=== PATIENT | female | born 1995 | race Caucasian/White ===

== ENCOUNTER 2017-06-04 06:47 | Emergency (ER) | payer BC ==
--- NOTE | 2017-06-04 08:24 | EDM.PDOC ---
ED HPI GENERAL MEDICAL PROBLEM - General Chief Complaint: General Stated Complaint: VOMITING, BODY ACHES, COUGH Time Seen by Provider: 06/04/17 08:16 - History of Present Illness INITIAL COMMENTS - FREE TEXT/NARRATIVE: HISTORY AND PHYSICAL: History of present illness: Patient's 21-year-old female presents with cervical cough congestion sore throat over 1 week denies shortness of breath chest pain or other concern Review of systems: As per history of present illness and below otherwise all systems reviewed and negative. Past medical history: As per history of present illness and as reviewed below otherwise noncontributory. Surgical history: As per history of present illness and as reviewed below otherwise noncontributory. Social history: No reported history of drug or alcohol abuse. Family history: As per history of present illness and as reviewed below otherwise noncontributory. Physical exam: HEENT: Atraumatic, normocephalic, pupils reactive, negative for conjunctival pallor or scleral icterus, mucous membranes moist, throat clear, neck supple, nontender, trachea midline. Lungs: Clear to auscultation, breath sounds equal bilaterally, chest nontender. Heart: S1S2, regular, negative for clicks, rubs, or JVD. Abdomen: Soft, nondistended, nontender. Negative for masses or hepatosplenomegaly. Negative for costovertebral tenderness. Pelvis: Stable nontender. Genitourinary: Deferred. Rectal: Deferred. Extremities: Atraumatic, negative for cords or calf pain. Neurovascular unremarkable. Neuro: Awake, alert, oriented. Cranial nerves II through XII unremarkable. Cerebellum unremarkable. Motor and sensory unremarkable throughout. Exam nonfocal. Diagnostics: With the screen rapid strep Therapeutics: None Impression: #1 viral syndrome Definitive disposition and diagnosis as appropriate pending reevaluation and review of above. Generalized Pain Score (Numeric/FACES): 7 - Related Data Allergies Allergy/AdvReac Type Severity Reaction Status Date / Time amoxicillin Allergy Hives Verified 06/04/17 07:01 Home Meds: Home Meds Ethinyl Estradiol/Drospirenone [Ocella 3 MG-0.03 MG] 1 each PO DAILY 06/04/17 [ History] Past Medical History - Past Health History Medical/Surgical History: Denies Medical/Surgical History Social & Family History - Tobacco Use Smoking Status *Q: Never Smoker - Caffeine Use Caffeine Use: Reports: Coffee, Energy Drinks, Soda, Tea - Recreational Drug Use Recreational Drug Use: No ED ROS GENERAL - Review of Systems Review Of Systems: ROS reveals no pertinent complaints other than HPI. ED EXAM, GENERAL - Physical Exam Exam: See Below (See dictation) Course - Vital Signs Last Recorded V/S: Last Vital Signs Temp 36.9 C 06/04/17 06:58 Pulse 137 H 06/04/17 06:58 Resp 16 06/04/17 06:58 BP 139/86 06/04/17 06:58 Pulse Ox 98 06/04/17 06:58 - Orders/Labs/Meds Orders: Active Orders 24 hr Category Date Time Status CULTURE STREP A CONFIRMATION [] Stat Lab 06/04/17 07:07 Results STREP SCRN A RAPID W CULT CONF [] Stat Lab 06/04/17 07:07 Results Labs: Laboratory Tests 06/04/17 Range/Units 07:55 Urine HCG, Qual NEGATIVE (NEGATIVE) Departure - Departure Time of Disposition: 08:23 Disposition: Home, Self-Care 01 Condition: Good Clinical Impression: Viral syndrome - Discharge Information Referrals: Ender Young MD [Primary Care Provider] - Additional Instructions: The following information is given to patients seen in the emergency department who are being discharged to home. This information is to outline your options for follow-up care. We provide all patients seen in our emergency department with a follow-up referral. The need for follow-up, as well as the timing and circumstances, are variable depending upon the specifics of your emergency department visit. If you don't have a primary care physician on staff, we will provide you with a referral. We always advise you to contact your personal physician following an emergency department visit to inform them of the circumstance of the visit and for follow-up with them and/or the need for any referrals to a consulting specialist. The emergency department will also refer you to a specialist when appropriate. This referral assures that you have the opportunity for followup care with a specialist. All of these measure are taken in an effort to provide you with optimal care, which includes your followup. Under all circumstances we always encourage you to contact your private physician who remains a resource for coordinating your care. When calling for followup care, please make the office aware that this follow-up is from your recent emergency room visit. If for any reason you are refused follow-up, please contact the [facility] emergency department at and asked to speak to the emergency department charge nurse. Motrin/Tylenol as directed follow-up primary medical doctor 1-2 days return as needed as discussed - My Orders Last 24 Hours: My Active Orders 06/04/17 07:07 CULTURE STREP A CONFIRMATION [RM] Stat STREP SCRN A RAPID W CULT CONF [RM] Stat - Assessment/Plan Last 24 Hours: My Active Orders 06/04/17 07:07 CULTURE STREP A CONFIRMATION [RM] Stat STREP SCRN A RAPID W CULT CONF [] Stat
== END 2017-06-04 08:32 | disposition home or self-care (01) ==
LOC: MW.ED 06:47
DX: B34.9 Viral infection, unspecified (principal); Z88.1 Allergy status to other antibiotic agents; Z79.899 Other long term (current) drug therapy
CPT/HCPCS: 81025; 87081; 87804; 87880; 99283

== ENCOUNTER 2017-12-16 19:18 | Emergency (ER) | payer BC ==
--- NOTE | 2017-12-16 19:36 | EDM.PDOC ---
ED HPI GENERAL MEDICAL PROBLEM - General Chief Complaint: ENT Problem Stated Complaint: FOOD IN CHEST Time Seen by Provider: 12/16/17 19:29 Source of Information: Reports: Patient History Limitations: Reports: No Limitations - History of Present Illness INITIAL COMMENTS - FREE TEXT/NARRATIVE: HISTORY AND PHYSICAL: History of present illness: Patient is a 22-year-old female who presents to the emergency room with complaints of a sensation of foreign body in her esophagus. She states on Tuesday she was eating noodles and felt that a "noodle got stuck in my throat ". She was recently diagnosed with strep throat and currently is taking antibiotics for this. She reports "I think my strep throat is gone I just feel like I have something till in there". She states that the throat is painful with swallowing and palpating. She is able to swallow her saliva and has been eating appropriately since the said incident. She denies any fever, chills, chest pain, shortness of breath or cough. Denies any abdominal pain, nausea, vomiting, diarrhea or constipation. Review of systems: As per history of present illness and below otherwise all systems reviewed and negative. Past medical history: As per history of present illness and as reviewed below otherwise noncontributory. Surgical history: As per history of present illness and as reviewed below otherwise noncontributory. Social history: No reported history of drug or alcohol abuse. Family history: As per history of present illness and as reviewed below otherwise noncontributory. Physical exam: General: Well developed and well-nourished 22-year-old female. Alert and oriented. Nontoxic appearing and in no acute distress. HEENT: Atraumatic, normocephalic, pupils equal and reactive bilaterally, negative for conjunctival pallor or scleral icterus, mucous membranes moist, erythema to the posterior oropharynx with exudate and no pillar shifting, neck supple, nontender, trachea midline. No drooling or trismus noted. No meningeal signs Lungs: Clear to auscultation, breath sounds equal bilaterally, chest nontender. Heart: S1S2, regular rate and rhythm without overt murmur Abdomen: Soft, nondistended, nontender. Negative for masses or hepatosplenomegaly. Negative for costovertebral tenderness. Pelvis: Stable nontender. Genitourinary: Deferred. Rectal: Deferred. Skin: Intact, warm, dry. No lesions or rashes noted. Extremities: Atraumatic, negative for cords or calf pain. Neurovascular unremarkable. Neuro: Awake, alert, oriented. Cranial nerves II through XII unremarkable. Cerebellum unremarkable. Motor and sensory unremarkable throughout. Exam nonfocal. Notes: This time I am not concerned of a foreign body being in the esophagus. He does have exudate noted to the posterior oropharynx which I think is what she is having discomfort with. We'll give her something for pain. Chest x-ray being done. Denies any chance of . Chest x-ray is unremarkable. Poor to care measures were reviewed and discussed. She voices understanding. Denies any further questions or concerns at this time. Diagnostics: Chest x-ray Therapeutics: Tylenol with codeine Prescription: Tylenol with codeine Impression: History of strep throat Sensation of foreign body Plan: 1. Continue your antibiotics until completed 2. Take the Tylenol with Codeine for the discomfort. This medication may cause sedation (drowsiness) so do not take it will driving her needing to be functioning outside of the house. 3. Follow-up with your primary caregiver in the next 1-2 days. If you continue to have sensation of FB you should follow up with the general surgeon as you may require further evaluation (EGD). Return to the ED as needed and as discussed. Definitive disposition and diagnosis as appropriate pending reevaluation and review of above. Duration: Day(s): Location: Reports: Neck - Related Data Allergies Allergy/AdvReac Type Severity Reaction Status Date / Time amoxicillin Allergy Hives Verified 12/16/17 19:31 Home Meds: Home Meds Ethinyl Estradiol/Drospirenone [Ocella 3 MG-0.03 MG] 1 each PO DAILY 06/04/17 [ History] Azithromycin [Zithromax] 0 mg PO DAILY 12/16/17 [History] Past Medical History - Past Health History Medical/Surgical History: Denies Medical/Surgical History Social & Family History - Caffeine Use Caffeine Use: Reports: Coffee, Energy Drinks, Soda, Tea ED ROS ENT - Review of Systems Review Of Systems: ROS reveals no pertinent complaints other than HPI. ED EXAM, ENT - Physical Exam Exam: See Below (See dictation) Course - Vital Signs Last Recorded V/S: Last Vital Signs Temp 98 F 12/16/17 19:28 Pulse 95 12/16/17 19:28 Resp 18 12/16/17 19:28 BP 129/77 12/16/17 19:28 Pulse Ox 98 12/16/17 19:28 - Orders/Labs/Meds Orders: Active Orders 24 hr Category Date Time Status Chest 2V [CR] Stat Exams 12/16/17 19:41 Ordered Meds: Medications Discontinued Medications Generic Name Dose Route Start Last Admin Trade Name Freq PRN Reason Stop Dose Admin Acetaminophen/Codeine Phosphate 5 ml 12/16/17 19:41 12/16/17 20:11 Tylenol/Codeine 120-12 Mg/5 Ml PO 12/16/17 19:42 5 ml ONETIME ONE Administration Departure - Departure Time of Disposition: 20:13 Disposition: Home, Self-Care 01 Clinical Impression: History of strep pharyngitis, Sensation of foreign body in esophagus - Discharge Information Referrals: Ender Young MD [Primary Care Provider] - Forms: ED Department Discharge Additional Instructions: The following information is given to patients seen in the emergency department who are being discharged to home. This information is to outline your options for follow-up care. We provide all patients seen in our emergency department with a follow-up referral. The need for follow-up, as well as the timing and circumstances, are variable depending upon the specifics of your emergency department visit. If you don't have a primary care physician on staff, we will provide you with a referral. We always advise you to contact your personal physician following an emergency department visit to inform them of the circumstance of the visit and for follow-up with them and/or the need for any referrals to a consulting specialist. The emergency department will also refer you to a specialist when appropriate. This referral assures that you have the opportunity for follow-up care with a specialist. All of these measure are taken in an effort to provide you with optimal care, which includes your follow-up. Under all circumstances we always encourage you to contact your private physician who remains a resource for coordinating your care. When calling for follow-up care, please make the office aware that this follow-up is from your recent emergency room visit. If for any reason you are refused follow-up, please contact the [facility] Emergency Department at and asked to speak to the emergency department charge nurse. [facility] [address] [place] [id number] 1. Continue your antibiotics until completed 2. Take the Tylenol with Codeine for the discomfort. This medication may cause sedation (drowsiness) so do not take it will driving her needing to be functioning outside of the house. 3. Follow-up with your primary caregiver in the next 1-2 days. If you continue to have sensation of FB you should follow up with the general surgeon as you may require further evaluation (EGD). Return to the ED as needed and as discussed. - My Orders Last 24 Hours: My Active Orders 12/16/17 19:41 Chest 2V [CR] Stat - Assessment/Plan Last 24 Hours: My Active Orders 12/16/17 19:41 Chest 2V [CR] Stat
[2017-12-16] MEDS ORDERED: Acetaminophen/Codeine 120-12 MG/5 ML Soln 5 ML UD Cup PO ONE (19:41)
--- NOTE | 2017-12-19 15:20 | CR ---
EXAM DATE: 12/16/17 PATIENT'S AGE: 22 Patient: JANINE CHRISTY Facility: [place], [place] Site . Site : 1995 Study: XRay Chest [id number]/[id number] 9:11:38 PM Ordering Physician: Doctor August Final Report: HISTORY: Cough. TECHNIQUE: Two views of the chest. COMPARISON: No prior. FINDINGS: Cardiac size and pulmonary vasculature are within normal limits. There is no lung infiltrate or pulmonary edema. No pneumothorax or pleural effusion. No acute bony abnormality. IMPRESSION: No acute disease. Dictated by Khari Garcia MD @ 12/16/2017 9:15:02 PM Dictated by: Khari Garcia MD @ 12/16/2017 21:15:13 (Electronic Signature) Report Signed by Proxy. [facility]ITAL[facility]rak[facility]
== END 2017-12-16 21:55 | disposition home or self-care (01) ==
LOC: MW.ED 19:18
DX: R09.89 Other specified symptoms and signs involving the circulatory and respiratory systems (principal); Z88.1 Allergy status to other antibiotic agents; Z79.899 Other long term (current) drug therapy
CPT/HCPCS: 71046; 99283; A9270

== ENCOUNTER 2018-06-18 12:45 | Emergency (ER) | payer OTHER ==
[2018-06-18] MEDS ORDERED: Sodium Chloride 0.9% 1,000 ML IV ONE ×2 (13:29→14:57)
[2018-06-18] MEDS ORDERED: Sodium Chloride 0.9% 10 ML Syringe FLUSH PRN (13:29)
[2018-06-18] MEDS ORDERED: Sodium Chloride 0.9% 2.5 ML Syringe FLUSH PRN (13:29)
[2018-06-18] MEDS ORDERED: Ondansetron 4 MG/2 ML SDV IVPUSH ONE ×2 (13:53→16:12)
--- NOTE | 2018-06-18 14:03 | EDM.PDOC ---
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 She states she has had vomiting for the past 5 weeks, she was prescribed reglan 2 weeks ago by her OB, Dr. Dumont. She states this is no longer working and she hasn't taken it today because she can't keep anything down. She has had about 8 episodes of vomiting since 5am today. She denies fevers, chills, abdominal pain, diarrhea. She states she had a small amount of maria vaginal discharge this morning. Review of systems: As per history of present illness and below otherwise all systems reviewed and negative. Past medical history: As per history of present illness and as reviewed below otherwise noncontributory. Surgical history: As per history of present illness and as reviewed below otherwise noncontributory. Social history: No reported history of drug or alcohol abuse. Family history: As per history of present illness and as reviewed below otherwise noncontributory. Physical exam: General: Patient sitting comfortably in no acute distress and nontoxic appearing HEENT: Atraumatic, normocephalic, pupils reactive, negative for conjunctival pallor or scleral icterus, mucous membranes moist, throat clear, neck supple, nontender, trachea midline. No meningeal signs. Lungs: Clear to auscultation, breath sounds equal bilaterally, chest nontender. Heart: S1S2, regular, negative for clicks, rubs, or overt murmur. Abdomen: Soft, nondistended, nontender. Negative for masses or hepatosplenomegaly. Negative for costovertebral tenderness. Pelvis: Stable nontender. Genitourinary: Cervix is closed without any bloody discharge. Rectal: Deferred. Extremities: Atraumatic, negative for cords or calf pain. Neurovascular unremarkable. Neuro: Awake, alert, oriented. Cranial nerves II through XII unremarkable. Cerebellum unremarkable. Motor and sensory unremarkable throughout. Exam nonfocal. Notes: Diagnostics: CBC, CMP, hcg quant, ABO/Rh, UA Therapeutics: 2L Normal Saline IV 4mg Zofran IV Prescriptions: Zofran ODT Impression: Emesis in first trimester Plan: 1. Drink plenty of small sips of fluids and take zofran as needed for nausea/ vomiting 2. Follow up with OB, please call them tomorrow to schedule an appointment 3. Return to ED as needed as discussed Definitive disposition and diagnosis as appropriate pending reevaluation and review of above. - Related Data Allergies Allergy/AdvReac Type Severity Reaction Status Date / Time amoxicillin Allergy Hives Verified 06/18/18 13:29 Home Meds: Home Meds Ondansetron [Zofran ODT] 4 mg PO Q6H PRN #10 tab.dis 06/18/18 [Rx] Past Medical History - Past Health History Medical/Surgical History: Denies Medical/Surgical History HEENT History: Reports: None Psychiatric History: Reports: Anxiety, Depression - Past Surgical History HEENT Surgical History: Reports: Oral Surgery Social & Family History - Family History Family Medical History: Noncontributory - Tobacco Use Smoking Status *Q: Never Smoker - Caffeine Use Caffeine Use: Reports: Coffee, Energy Drinks, Soda, Tea - Recreational Drug Use Recreational Drug Use: No ED ROS GENERAL - Review of Systems Review Of Systems: ROS reveals no pertinent complaints other than HPI. ED EXAM - Physical Exam Exam: See Below (see dictation) Course - Vital Signs Last Recorded V/S: Last Vital Signs Temp 97.7 F 06/18/18 13:25 Pulse 86 06/18/18 15:12 Resp 18 06/18/18 15:12 BP 114/68 06/18/18 15:12 Pulse Ox 99 06/18/18 15:12 - Orders/Labs/Meds Orders: Active Orders 24 hr Category Date Time Status Sodium Chloride 0.9% [Normal Saline] 1,000 ml Med 06/18/18 14:57 Active IV STAT Sodium Chloride 0.9% [Saline Flush] Med 06/18/18 13:29 Active 10 ml FLUSH ASDIRECTED PRN Sodium Chloride 0.9% [Saline Flush] Med 06/18/18 13:29 Active 2.5 ml FLUSH ASDIRECTED PRN Saline Lock Insert [OM.PC] Stat Oth 06/18/18 13:29 Ordered Medication Orders Sodium Chloride (Normal Saline) 1,000 mls @ 999 mls/hr IV STAT ONE Stop: 06/18/18 15:57 Last Admin: 06/18/18 15:07 Dose: 999 mls/hr Sodium Chloride (Saline Flush) 10 ml FLUSH ASDIRECTED PRN PRN Reason: Keep Vein Open Last Admin: 06/18/18 13:54 Dose: 10 ml Sodium Chloride (Saline Flush) 2.5 ml FLUSH ASDIRECTED PRN PRN Reason: Keep Vein Open Last Admin: 06/18/18 13:54 Dose: 2.5 ml Labs: Laboratory Tests 06/18/18 06/18/18 06/18/18 Range/Units 14:00 14:00 14:00 WBC 6.61 (4.0-11.0) K/uL RBC 4.88 (4.30-5.90) M/uL Hgb 11.4 L (12.0-16.0) g/dL Hct 34.8 L (36.0-46.0) % MCV 71.3 L (80.0-98.0) fL MCH 23.4 L (27.0-32.0) pg MCHC 32.8 (31.0-37.0) g/dL RDW Std Deviation 41.6 (28.0-62.0) fl RDW Coeff of [place] 16 H (11.0-15.0) % Plt Count 211 (150-400) K/uL MPV 11.00 (7.40-12.00) fL Neut % (Auto) 69.4 (48.0-80.0) % Lymph % (Auto) 20.9 (16.0-40.0) % [place] % (Auto) 8.6 (0.0-15.0) % Eos % (Auto) 0.6 (0.0-7.0) % Baso % (Auto) 0.5 (0.0-1.5) % Neut # (Auto) 4.6 (1.4-5.7) K/uL Lymph # (Auto) 1.4 (0.6-2.4) K/uL [place] # (Auto) 0.6 (0.0-0.8) K/uL Eos # (Auto) 0.0 (0.0-0.7) K/uL Baso # (Auto) 0.0 (0.0-0.1) K/uL Nucleated RBC % 0.0 /100WBC Nucleated RBCs # 0 K/uL Sodium 139 (136-145) mmol/L Potassium 3.4 L (3.5-5.1) mmol/L Chloride 103 (98-107) mmol/L Carbon Dioxide 20.6 L (21.0-32.0) mmol/L BUN 15 (7.0-18.0) mg/dL Creatinine 0.6 (0.6-1.0) mg/dL Est Cr Clr Drug Dosing 117.31 mL/min Estimated GFR (MDRD) > 60.0 ml/min Glucose 75 (74-106) mg/dL Calcium 9.7 (8.5-10.1) mg/dL Total Bilirubin 0.5 (0.2-1.0) mg/dL AST 17 (15-37) IU/L ALT 15 (14-63) IU/L Alkaline Phosphatase 59 (46-116) U/L Total Protein 8.3 H (6.4-8.2) g/dL Albumin 4.3 (3.4-5.0) g/dL Globulin 4.0 (2.6-4.0) g/dL Albumin/Globulin Ratio 1.1 (0.9-1.6) HCG, Quant 778642.0 mIU/mL Urine Color Urine Appearance Urine pH (5.0-8.0) Ur Specific [place] (1.001-1.035) Urine Protein (NEGATIVE) mg/dL Urine Glucose (UA) (NEGATIVE) mg/dL Urine Ketones (NEGATIVE) mg/dL Urine Occult Blood (NEGATIVE) Urine Nitrite (NEGATIVE) Urine Bilirubin (NEGATIVE) Urine Urobilinogen (<2.0) EU/dL Ur Leukocyte Esterase (NEGATIVE) Urine RBC (0-2/HPF) Urine WBC (0-5/HPF) Ur Epithelial Cells (NONE-FEW) Urine Bacteria (NEGATIVE) Urine Mucus (NONE-MOD) Blood Type 06/18/18 06/18/18 Range/Units 14:00 15:00 WBC (4.0-11.0) K/uL RBC (4.30-5.90) M/uL Hgb (12.0-16.0) g/dL Hct (36.0-46.0) % MCV (80.0-98.0) fL MCH (27.0-32.0) pg MCHC (31.0-37.0) g/dL RDW Std Deviation (28.0-62.0) fl RDW Coeff of [place] (11.0-15.0) % Plt Count (150-400) K/uL MPV (7.40-12.00) fL Neut % (Auto) (48.0-80.0) % Lymph % (Auto) (16.0-40.0) % [place] % (Auto) (0.0-15.0) % Eos % (Auto) (0.0-7.0) % Baso % (Auto) (0.0-1.5) % Neut # (Auto) (1.4-5.7) K/uL Lymph # (Auto) (0.6-2.4) K/uL [place] # (Auto) (0.0-0.8) K/uL Eos # (Auto) (0.0-0.7) K/uL Baso # (Auto) (0.0-0.1) K/uL Nucleated RBC % /100WBC Nucleated RBCs # K/uL Sodium (136-145) mmol/L Potassium (3.5-5.1) mmol/L Chloride (98-107) mmol/L Carbon Dioxide (21.0-32.0) mmol/L BUN (7.0-18.0) mg/dL Creatinine (0.6-1.0) mg/dL Est Cr Clr Drug Dosing mL/min Estimated GFR (MDRD) ml/min Glucose (74-106) mg/dL Calcium (8.5-10.1) mg/dL Total Bilirubin (0.2-1.0) mg/dL AST (15-37) IU/L ALT (14-63) IU/L Alkaline Phosphatase (46-116) U/L Total Protein (6.4-8.2) g/dL Albumin (3.4-5.0) g/dL Globulin (2.6-4.0) g/dL Albumin/Globulin Ratio (0.9-1.6) HCG, Quant mIU/mL Urine Color YELLOW Urine Appearance SLT CLOUDY Urine pH 6.0 (5.0-8.0) Ur Specific [place] >= 1.030 (1.001-1.035) Urine Protein TRACE H (NEGATIVE) mg/dL Urine Glucose (UA) NEGATIVE (NEGATIVE) mg/dL Urine Ketones >=80 (NEGATIVE) mg/dL Urine Occult Blood MODERATE H (NEGATIVE) Urine Nitrite NEGATIVE (NEGATIVE) Urine Bilirubin NEGATIVE (NEGATIVE) Urine Urobilinogen 0.2 (<2.0) EU/dL Ur Leukocyte Esterase NEGATIVE (NEGATIVE) Urine RBC 4-6 (0-2/HPF) Urine WBC 1-2 (0-5/HPF) Ur Epithelial Cells MODERATE (NONE-FEW) Urine Bacteria FEW (NEGATIVE) Urine Mucus HEAVY (NONE-MOD) Blood Type AB POSITIVE Meds: Medications Generic Name Dose Route Start Last Admin Trade Name Freq PRN Reason Stop Dose Admin Sodium Chloride 1,000 mls @ 999 mls/hr 06/18/18 14:57 06/18/18 15:07 Normal Saline IV 06/18/18 15:57 999 mls/hr STAT ONE Administration Sodium Chloride 10 ml 06/18/18 13:29 06/18/18 13:54 Saline Flush FLUSH 10 ml ASDIRECTED PRN Administration Keep Vein Open Sodium Chloride 2.5 ml 06/18/18 13:29 06/18/18 13:54 Saline Flush FLUSH 2.5 ml ASDIRECTED PRN Administration Keep Vein Open Discontinued Medications Generic Name Dose Route Start Last Admin Trade Name Freq PRN Reason Stop Dose Admin Sodium Chloride 1,000 mls @ 999 mls/hr 06/18/18 13:29 06/18/18 13:53 Normal Saline IV 06/18/18 14:29 999 mls/hr STAT ONE Administration Ondansetron HCl 4 mg 06/18/18 13:53 06/18/18 13:58 Zofran IVPUSH 06/18/18 13:54 4 mg ONETIME ONE Administration Departure - Departure Time of Disposition: 15:18 Disposition: Home, Self-Care 01 Condition: Good Clinical Impression: Vomiting affecting - Discharge Information Prescriptions: Ondansetron [Zofran ODT] 4 mg PO Q6H PRN #10 tab.dis PRN Reason: Nausea/Vomiting Referrals: PCP,Unknown [Primary Care Provider] - Forms: ED Department Discharge Additional Instructions: The following information is given to patients seen in the emergency department who are being discharged to home. This information is to outline your options for follow-up care. We provide all patients seen in our emergency department with a follow-up referral. The need for follow-up, as well as the timing and circumstances, are variable depending upon the specifics of your emergency department visit. If you don't have a primary care physician on staff, we will provide you with a referral. We always advise you to contact your personal physician following an emergency department visit to inform them of the circumstance of the visit and for follow-up with them and/or the need for any referrals to a consulting specialist. The emergency department will also refer you to a specialist when appropriate. This referral assures that you have the opportunity for follow-up care with a specialist. All of these measure are taken in an effort to provide you with optimal care, which includes your follow-up. Under all circumstances we always encourage you to contact your private physician who remains a resource for coordinating your care. When calling for follow-up care, please make the office aware that this follow-up is from your recent emergency room visit. If for any reason you are refused follow-up, please contact the [facility] Emergency Department at and asked to speak to the emergency department charge nurse. [facility] [address] [place] [id number] 1. Drink plenty of small sips of fluids and take zofran as needed for nausea/ vomiting 2. Follow up with OB, please call them tomorrow to schedule an appointment 3. Return to ED as needed as discussed - My Orders Last 24 Hours: My Active Orders 06/18/18 13:29 Sodium Chloride 0.9% [Saline Flush] 10 ml FLUSH ASDIRECTED PRN Sodium Chloride 0.9% [Saline Flush] 2.5 ml FLUSH ASDIRECTED PRN Saline Lock Insert [OM.PC] Stat 06/18/18 14:57 Sodium Chloride 0.9% [Normal Saline] 1,000 ml IV STAT - Assessment/Plan Last 24 Hours: My Active Orders 06/18/18 13:29 Sodium Chloride 0.9% [Saline Flush] 10 ml FLUSH ASDIRECTED PRN Sodium Chloride 0.9% [Saline Flush] 2.5 ml FLUSH ASDIRECTED PRN Saline Lock Insert [OM.PC] Stat 06/18/18 14:57 Sodium Chloride 0.9% [Normal Saline] 1,000 ml IV STAT
[2018-06-18 14:31] LABS: CHLORIDE,CL 103 mmol/L (98-107); SODIUM,NA 139 mmol/L (136-145)
== END 2018-06-18 16:53 | disposition home or self-care (01) ==
LOC: MW.ED 12:45
DX: O21.9 Vomiting of pregnancy, unspecified (principal); Z3A.08 8 weeks gestation of pregnancy; Z88.1 Allergy status to other antibiotic agents
CPT/HCPCS: 36415; 80053; 81001; 84702; 85025; 86900; 86901; 96361; 96374; 96376; 99284; J2405; J7040; 99283

== ENCOUNTER 2018-07-01 21:21 | Emergency (ER) | payer OTHER ==
[2018-07-01] MEDS ORDERED: Sodium Chloride 0.9% 1,000 ML IV ONE ×2 (21:34→21:54)
--- NOTE | 2018-07-01 21:34 | EDM.PDOC ---
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 Review of systems: As per history of present illness and below otherwise all systems reviewed and negative. Past medical history: As per history of present illness and as reviewed below otherwise noncontributory. Surgical history: As per history of present illness and as reviewed below otherwise noncontributory. Social history: No reported history of drug or alcohol abuse. Family history: As per history of present illness and as reviewed below otherwise noncontributory. Physical exam: HEENT: Atraumatic, normocephalic, pupils reactive, negative for conjunctival pallor or scleral icterus, mucous membranes dry, throat clear, neck supple, nontender, trachea midline. Lungs: Clear to auscultation, breath sounds equal bilaterally, chest nontender. Heart: S1S2, regular, negative for clicks, rubs, or JVD. Abdomen: Soft, nondistended, nontender. Negative for masses or hepatosplenomegaly. Negative for costovertebral tenderness. Pelvis: Stable nontender. Genitourinary: Deferred. Rectal: Deferred. Extremities: Atraumatic, negative for cords or calf pain. Neurovascular unremarkable. Neuro: Awake, alert, oriented. Cranial nerves II through XII unremarkable. Cerebellum unremarkable. Motor and sensory unremarkable throughout. Exam nonfocal. Diagnostics: CBC CMP Therapeutics: 0.9 normal saline 2 L bolus Impression: #1 hyperemesis gravidarum with dehydration Definitive disposition and diagnosis as appropriate pending reevaluation and review of above. - Related Data Allergies Allergy/AdvReac Type Severity Reaction Status Date / Time amoxicillin Allergy Hives Verified 07/01/18 21:30 Home Meds: Home Meds Metoclopramide HCl [Reglan] 1 tab PO TID 07/01/18 [History] Ondansetron [Zofran ODT] 4 mg PO Q8HR PRN 07/01/18 [History] Past Medical History - Past Health History Medical/Surgical History: Denies Medical/Surgical History HEENT History: Reports: None Psychiatric History: Reports: Anxiety, Depression - Past Surgical History HEENT Surgical History: Reports: Oral Surgery Social & Family History - Family History Family Medical History: Noncontributory - Tobacco Use Smoking Status *Q: Never Smoker - Caffeine Use Caffeine Use: Reports: Coffee, Energy Drinks, Soda, Tea - Recreational Drug Use Recreational Drug Use: No ED ROS GENERAL - Review of Systems Review Of Systems: ROS reveals no pertinent complaints other than HPI. ED EXAM, GENERAL - Physical Exam Exam: See Below (See dictation) Course - Vital Signs Last Recorded V/S: Last Vital Signs Temp 36.4 C 07/01/18 21:21 Pulse 100 07/01/18 22:29 Resp 18 07/01/18 22:29 BP 122/77 07/01/18 22:29 Pulse Ox 99 07/01/18 22:29 - Orders/Labs/Meds Labs: Laboratory Tests 07/01/18 07/01/18 Range/Units 21:40 21:40 WBC 7.80 (4.0-11.0) K/uL RBC 4.72 (4.30-5.90) M/uL Hgb 11.2 L (12.0-16.0) g/dL Hct 34.1 L (36.0-46.0) % MCV 72.2 L (80.0-98.0) fL MCH 23.7 L (27.0-32.0) pg MCHC 32.8 (31.0-37.0) g/dL RDW Std Deviation 44.5 (28.0-62.0) fl RDW Coeff of [place] 17 H (11.0-15.0) % Plt Count 208 (150-400) K/uL MPV 10.20 (7.40-12.00) fL Neut % (Auto) 67.9 (48.0-80.0) % Lymph % (Auto) 24.0 (16.0-40.0) % [place] % (Auto) 7.1 (0.0-15.0) % Eos % (Auto) 0.5 (0.0-7.0) % Baso % (Auto) 0.5 (0.0-1.5) % Neut # (Auto) 5.3 (1.4-5.7) K/uL Lymph # (Auto) 1.9 (0.6-2.4) K/uL [place] # (Auto) 0.6 (0.0-0.8) K/uL Eos # (Auto) 0.0 (0.0-0.7) K/uL Baso # (Auto) 0.0 (0.0-0.1) K/uL Nucleated RBC % 0.0 /100WBC Nucleated RBCs # 0 K/uL Sodium 135 L (136-145) mmol/L Potassium 3.4 L (3.5-5.1) mmol/L Chloride 101 (98-107) mmol/L Carbon Dioxide 24.5 (21.0-32.0) mmol/L BUN 9 (7.0-18.0) mg/dL Creatinine 0.7 (0.6-1.0) mg/dL Est Cr Clr Drug Dosing 100.55 mL/min Estimated GFR (MDRD) > 60.0 ml/min Glucose 83 (74-106) mg/dL Calcium 9.4 (8.5-10.1) mg/dL Total Bilirubin 0.4 (0.2-1.0) mg/dL AST 16 (15-37) IU/L ALT 13 L (14-63) IU/L Alkaline Phosphatase 59 (46-116) U/L Total Protein 7.9 (6.4-8.2) g/dL Albumin 4.1 (3.4-5.0) g/dL Globulin 3.8 (2.6-4.0) g/dL Albumin/Globulin Ratio 1.1 (0.9-1.6) Meds: Medications Discontinued Medications Generic Name Dose Route Start Last Admin Trade Name Freq PRN Reason Stop Dose Admin Sodium Chloride 1,000 mls @ 999 mls/hr 07/01/18 21:34 07/01/18 21:45 Normal Saline IV 07/01/18 22:34 999 mls/hr .Bolus ONE Administration Sodium Chloride 1,000 mls @ 999 mls/hr 07/01/18 21:54 07/01/18 21:55 Normal Saline IV 07/01/18 22:54 999 mls/hr .Bolus ONE Administration Ondansetron HCl 4 mg 07/01/18 22:31 07/01/18 22:36 Zofran IVPUSH 07/01/18 22:32 4 mg ONETIME ONE Administration Departure - Departure Time of Disposition: 23:05 Disposition: Home, Self-Care 01 Condition: Good Clinical Impression: Hyperemesis gravidarum, Dehydration - Discharge Information Instructions: Hyperemesis Gravidarum Referrals: PCP,None [Primary Care Provider] - Forms: ED Department Discharge Additional Instructions: The following information is given to patients seen in the emergency department who are being discharged to home. This information is to outline your options for follow-up care. We provide all patients seen in our emergency department with a follow-up referral. The need for follow-up, as well as the timing and circumstances, are variable depending upon the specifics of your emergency department visit. If you don't have a primary care physician on staff, we will provide you with a referral. We always advise you to contact your personal physician following an emergency department visit to inform them of the circumstance of the visit and for follow-up with them and/or the need for any referrals to a consulting specialist. The emergency department will also refer you to a specialist when appropriate. This referral assures that you have the opportunity for followup care with a specialist. All of these measure are taken in an effort to provide you with optimal care, which includes your followup. Under all circumstances we always encourage you to contact your private physician who remains a resource for coordinating your care. When calling for followup care, please make the office aware that this follow-up is from your recent emergency room visit. If for any reason you are refused follow-up, please contact the [facility] emergency department at and asked to speak to the emergency department charge nurse. 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
[2018-07-01 22:13] LABS: CHLORIDE,CL 101 mmol/L (98-107); SODIUM,NA 135 mmol/L (136-145)
[2018-07-01] MEDS ORDERED: Ondansetron 4 MG/2 ML SDV IVPUSH ONE (22:31)
== END 2018-07-01 23:10 | disposition home or self-care (01) ==
LOC: MW.ED 21:21
DX: O21.1 Hyperemesis gravidarum with metabolic disturbance (principal); Z88.1 Allergy status to other antibiotic agents; Z3A.10 10 weeks gestation of pregnancy
CPT/HCPCS: 36415; 80053; 85025; 96361; 96374; 99283; J2405; J7040

== ENCOUNTER 2018-07-16 19:56 | Emergency (ER) | payer OTHER ==
--- NOTE | 2018-07-16 20:13 | EDM.PDOC ---
ED HPI GENERAL MEDICAL PROBLEM <Irma Weston - Last Filed: 07/16/18 23:06> - General Source of Information: Reports: Patient History Limitations: Reports: No Limitations no pain Pain Score (Numeric/FACES): 0 <Miguel AngelZoilastephen Fabian - Last Filed: 07/17/18 10:04> - General Stated Complaint: 12 WEEKS PREG. VOMITING Time Seen by Provider: 07/16/18 19:58 - History of Present Illness INITIAL COMMENTS - FREE TEXT/NARRATIVE: This is Dr. Weston dictating addendum note as this case was endorsed to me at 10 PM. At that point the patient was doing well after the Phenergan suppository but she proceeded to have an episode of vomiting again so she was given a dose of Reglan IV, and she takes Reglan at home which has not been working, to see whether or not we could suppress the vomiting. She has finished 2 L of IV fluids and I will hang maintenance fluids of D5 half-normal saline at 1 25 mL per hour. The patient has no abdominal pain no vaginal bleeding and has a benign exam as described above. She doesn't look toxic and her mucous membranes are slightly tacky on my evaluation. She is not tachycardic nor hypotensive. She is only produce one urine output since she has been here which was the urine sample. I will add CBC and CMP to the labs to check for electrolyte imbalances and continue to monitor this patient. She does have a UTI so we'll give her a dose of Rocephin. I will contact the on-call physician for [facility] women's health to inform them of what's going on with her condition once I know her response to the IV Reglan. The patient is receiving her IV Rocephin and is no longer having any nausea and feels much improved. She is currently on her maintenance fluids of D5 half- normal saline. The patient will be discharged home with the prescriptions per the mid-level provider which included Macrobid for the UTI as well as the Phenergan suppositories. She will be advised that she needs to contact [facility] tomorrow and inform them of this third ER visit and schedule a follow-up appointment to get a better plan in place or outpatient care. (Irma Weston) HISTORY AND PHYSICAL: History of present illness: Patient is a 22-year-old female who presents to the emergency room today with complaints of nausea and vomiting during . Patient has a history of hyperemesis gravidarum, currently 12 weeks' gestation. She was seen previously in our emergency room for IV fluids and vomiting management. She states she routinely alternates Reglan and Zofran but over the past several hours has not been able to keep anything down regardless of her antinausea medication. She denies any fever, chills, chest pain, shortness of breath or cough. Denies any abdominal pain, vaginal bleeding/cramping, back pain, dysuria or diarrhea/ constipation. She last saw Dr. Dumont on 07/07/18 and states her appointment one well. She has had a confirmed IUP. She has no OB-related concerns today. Review of systems: As per history of present illness and below otherwise all systems reviewed and negative. Past medical history: As per history of present illness and as reviewed below otherwise noncontributory. Surgical history: As per history of present illness and as reviewed below otherwise noncontributory. Social history: See social history for further information Family history: As per history of present illness and as reviewed below otherwise noncontributory. Physical exam: General: Well-developed and well-nourished 22-year-old female. Alert and oriented. Nontoxic appearing and in no acute distress. Up sitting on the cot, using her cell phone and has significant other at bedside. HEENT: Atraumatic, normocephalic, pupils equal and reactive bilaterally, negative for conjunctival pallor or scleral icterus, mucous membranes moist, TMs normal bilaterally, throat clear, neck supple, nontender, trachea midline. No drooling or trismus noted. No meningeal signs. No hot potato voice noted. Lungs: Clear to auscultation, breath sounds equal bilaterally, chest nontender. Heart: S1S2, regular rate and rhythm without overt murmur Abdomen: Soft, nondistended, nontender. Negative for masses or hepatosplenomegaly. Negative for costovertebral tenderness. Pelvis: Stable nontender. Genitourinary: Deferred. Rectal: Deferred. Skin: Intact, warm, dry. No lesions or rashes noted. Extremities: Atraumatic, negative for cords or calf pain. Neurovascular unremarkable. Neuro: Awake, alert, oriented. Cranial nerves II through XII unremarkable. Cerebellum unremarkable. Motor and sensory unremarkable throughout. Exam nonfocal. Notes: FHT 150's per bedside doppler. UA shows a UTI. An episode of vomiting after the IV Zofran. We'll do the Phenergan suppository and continue to monitor. Dr Weston was endorsed this patient at 10pm. She will continue to monitor and disposition the patient. Diagnostics: UA, CBC, CMP Therapeutics: IV fluid, Zofran, Reglan, Phenergan Suppos, Rocephin Prescription: Macrobid, Phenergan Suppository (#6) Impression: Hyperemesis gravidarum UTI Plan: 1. Small frequent sips of fluids to prevent dehydration. Small frequent meals throughout the day to prevent nausea. 2. Use your Zofran and Reglan that you have prescribed as needed and as directed. 3. Follow-up with your [facility] as we discussed. Return to the ED as needed and as discussed. Definitive disposition and diagnosis as appropriate pending reevaluation and review of above. (Tobi Michelle) - Related Data Allergies Allergy/AdvReac Type Severity Reaction Status Date / Time amoxicillin Allergy Hives Verified 07/16/18 20:08 Home Meds: Home Meds Metoclopramide HCl [Reglan] 1 tab PO TID 07/01/18 [History] Ondansetron [Zofran ODT] 4 mg PO Q8HR PRN 07/01/18 [History] Doxylamine Succinate [Unisom] 1 tab PO ASDIRECTED 07/16/18 [History] Qhv995/FA/Omega3/Dha/Fish Oil [ Gummies] 1 tab PO DAILY 07/16/18 [ History] Past Medical History - Past Health History Medical/Surgical History: Denies Medical/Surgical History HEENT History: Reports: None Psychiatric History: Reports: Anxiety, Depression - Past Surgical History HEENT Surgical History: Reports: Oral Surgery <Tobi Michelle - Last Filed: 07/17/18 10:04> Social & Family History - Family History Family Medical History: Noncontributory - Caffeine Use Caffeine Use: Reports: Coffee, Energy Drinks, Soda, Tea <Toib Michelle - Last Filed: 07/17/18 10:04> ED ROS GENERAL - Review of Systems Review Of Systems: ROS reveals no pertinent complaints other than HPI. <Irma Weston A - Last Filed: 07/16/18 23:06> - Review of Systems Review Of Systems: ROS reveals no pertinent complaints other than HPI. <Tobi Michelle E - Last Filed: 07/17/18 10:04> ED EXAM - Physical Exam Exam: See Below (See dictation) <Tobi Michelle E - Last Filed: 07/17/18 10:04> - Vital Signs Last Recorded V/S: Last Vital Signs Temp 97.7 F 07/17/18 00:04 Pulse 104 H 07/17/18 00:04 Resp 14 07/17/18 00:04 BP 106/52 L 07/17/18 00:04 Pulse Ox 100 07/17/18 00:04 - Orders/Labs/Meds Orders: Active Orders 24 hr Category Date Time Status Communication Order [RC] STAT Care 07/16/18 20:19 Active CULTURE URINE [RM] Stat Lab 07/16/18 21:19 Received Labs: Laboratory Tests 07/16/18 07/16/18 07/16/18 Range/Units 20:26 20:26 21:19 WBC 7.47 (4.0-11.0) K/uL RBC 4.40 (4.30-5.90) M/uL Hgb 10.7 L (12.0-16.0) g/dL Hct 32.0 L (36.0-46.0) % MCV 72.7 L (80.0-98.0) fL MCH 24.3 L (27.0-32.0) pg MCHC 33.4 (31.0-37.0) g/dL RDW Std Deviation 45.4 (28.0-62.0) fl RDW Coeff of [place] 17 H (11.0-15.0) % Plt Count 202 (150-400) K/uL MPV 10.90 (7.40-12.00) fL Neut % (Auto) 68.9 (48.0-80.0) % Lymph % (Auto) 22.6 (16.0-40.0) % [place] % (Auto) 7.6 (0.0-15.0) % Eos % (Auto) 0.5 (0.0-7.0) % Baso % (Auto) 0.4 (0.0-1.5) % Neut # (Auto) 5.1 (1.4-5.7) K/uL Lymph # (Auto) 1.7 (0.6-2.4) K/uL [place] # (Auto) 0.6 (0.0-0.8) K/uL Eos # (Auto) 0.0 (0.0-0.7) K/uL Baso # (Auto) 0.0 (0.0-0.1) K/uL Nucleated RBC % 0.0 /100WBC Nucleated RBCs # 0 K/uL Sodium 137 (136-145) mmol/L Potassium 3.2 L (3.5-5.1) mmol/L Chloride 103 (98-107) mmol/L Carbon Dioxide 23.7 (21.0-32.0) mmol/L BUN 10 (7.0-18.0) mg/dL Creatinine 0.6 (0.6-1.0) mg/dL Est Cr Clr Drug Dosing 117.31 mL/min Estimated GFR (MDRD) > 60.0 ml/min Glucose 99 (74-106) mg/dL Calcium 9.3 (8.5-10.1) mg/dL Total Bilirubin 0.4 (0.2-1.0) mg/dL AST 14 L (15-37) IU/L ALT 15 (14-63) IU/L Alkaline Phosphatase 56 (46-116) U/L Total Protein 7.5 (6.4-8.2) g/dL Albumin 3.7 (3.4-5.0) g/dL Globulin 3.8 (2.6-4.0) g/dL Albumin/Globulin Ratio 1.0 (0.9-1.6) Urine Color YELLOW Urine Appearance HAZY Urine pH 7.0 (5.0-8.0) Ur Specific [place] 1.020 (1.001-1.035) Urine Protein TRACE H (NEGATIVE) mg/dL Urine Glucose (UA) NEGATIVE (NEGATIVE) mg/dL Urine Ketones 40 H (NEGATIVE) mg/dL Urine Occult Blood NEGATIVE (NEGATIVE) Urine Nitrite NEGATIVE (NEGATIVE) Urine Bilirubin NEGATIVE (NEGATIVE) Urine Urobilinogen 4.0 H (<2.0) EU/dL Ur Leukocyte Esterase TRACE H (NEGATIVE) Urine RBC 0-1 (0-2/HPF) Urine WBC 2-5 (0-5/HPF) Ur Epithelial Cells MANY (NONE-FEW) Amorphous Sediment HEAVY (NEGATIVE) Urine Bacteria 1+ H (NEGATIVE) Urine Mucus HEAVY (NONE-MOD) Meds: Medications Discontinued Medications Generic Name Dose Route Start Last Admin Trade Name Shala PRN Reason Stop Dose Admin Sodium Chloride 1,000 mls @ 999 mls/hr 07/16/18 20:14 07/16/18 20:29 Normal Saline IV 07/16/18 21:14 999 mls/hr STAT ONE Administration Sodium Chloride 1,000 mls @ 999 mls/hr 07/16/18 21:35 07/16/18 21:41 Normal Saline IV 07/16/18 22:35 999 mls/hr STAT ONE Administration Dextrose/Sodium Chloride 1,000 mls @ 125 mls/hr 07/16/18 22:45 07/16/18 22:37 Dextrose 5%-1/2 Ns IV 125 mls/hr ASDIRECTED JEZ Administration Ceftriaxone Sodium/Dextrose 1 50 mls @ 100 mls/hr 07/16/18 22:36 07/16/18 22: 53 gm/ Premix IV 07/16/18 23:05 100 mls/hr ONETIME ONE Administration Metoclopramide HCl 10 mg 07/16/18 21:35 07/16/18 22:07 Reglan IV 07/16/18 21:36 10 mg ONETIME ONE Administration Ondansetron HCl 4 mg 07/16/18 20:14 07/16/18 20:29 Zofran IVPUSH 07/16/18 20:15 4 mg ONETIME ONE Administration Promethazine HCl 12.5 mg 07/16/18 21:12 07/16/18 21:28 Phenadoz RECTAL 07/16/18 21:13 12.5 mg ONETIME ONE Administration Departure - Departure Time of Disposition: 23:07 Condition: Good <Irma Weston - Last Filed: 07/16/18 23:06> <Tobi Michelle - Last Filed: 07/17/18 10:04> - Departure Disposition: Home, Self-Care 01 Clinical Impression: Hyperemesis gravidarum Urinary tract infection Qualifiers: Urinary tract infection type: site unspecified Hematuria presence: without hematuria Qualified Code(s): N39.0 - Urinary tract infection, site not specified - Discharge Information Instructions: Hyperemesis Gravidarum, Urinary Tract Infection, Adult, Easy-to- Read Referrals: Maggie Dumont MD [Primary Care Provider] - Forms: ED Department Discharge Additional Instructions: The following information is given to patients seen in the emergency department who are being discharged to home. This information is to outline your options for follow-up care. We provide all patients seen in our emergency department with a follow-up referral. The need for follow-up, as well as the timing and circumstances, are variable depending upon the specifics of your emergency department visit. If you don't have a primary care physician on staff, we will provide you with a referral. We always advise you to contact your personal physician following an emergency department visit to inform them of the circumstance of the visit and for follow-up with them and/or the need for any referrals to a consulting specialist. The emergency department will also refer you to a specialist when appropriate. This referral assures that you have the opportunity for follow-up care with a specialist. All of these measure are taken in an effort to provide you with optimal care, which includes your follow-up. Under all circumstances we always encourage you to contact your private physician who remains a resource for coordinating your care. When calling for follow-up care, please make the office aware that this follow-up is from your recent emergency room visit. If for any reason you are refused follow-up, please contact the [facility] Emergency Department at and asked to speak to the emergency department charge nurse. [address] [address] 1. Small frequent sips of fluids to prevent dehydration. Small frequent meals throughout the day to prevent nausea. 2. Use your Zofran and Reglan that you have prescribed as needed and as directed. Add the new suppositories as needed for breakthrough nausea and vomiting. 3. Follow-up with your [facility] as we discussed. Please call the office first thing in the morning to tell them about this ER visit and need for follow-up Return to the ED as needed and as discussed. - My Orders Last 24 Hours: My Active Orders 07/16/18 20:19 Communication Order [RC] STAT 07/16/18 21:19 CULTURE URINE [RM] Stat - Assessment/Plan Last 24 Hours: My Active Orders 07/16/18 20:19 Communication Order [RC] STAT 07/16/18 21:19 CULTURE URINE [RM] Stat
[2018-07-16] MEDS ORDERED: Sodium Chloride 0.9% 1,000 ML IV ONE ×2 (20:14→21:35)
[2018-07-16] MEDS ORDERED: Ondansetron 4 MG/2 ML SDV IVPUSH ONE (20:14)
[2018-07-16] MEDS ORDERED: Promethazine 12.5 MG Supp RECTAL ONE (21:12)
[2018-07-16] MEDS ORDERED: Metoclopramide 10 MG/2 ML SDV IV ONE (21:35)
[2018-07-16] MEDS ORDERED: cefTRIAXone 1 GM in Premix Bag 1 BAG IV ONE (22:36)
[2018-07-16 22:39] LABS: CHLORIDE,CL 103 mmol/L (98-107); SODIUM,NA 137 mmol/L (136-145)
[2018-07-16] MEDS ORDERED: Dextrose 5%-0.45% NaCl 1,000 ML IV SCH (22:45)
== END 2018-07-17 00:04 | disposition home or self-care (01) ==
LOC: MW.ED 19:56
DX: O23.41 Unspecified infection of urinary tract in pregnancy, first trimester (principal); O21.0 Mild hyperemesis gravidarum; Z79.899 Other long term (current) drug therapy; Z88.1 Allergy status to other antibiotic agents; Z3A.12 12 weeks gestation of pregnancy
CPT/HCPCS: 36415; 80053; 81001; 85025; 87086; 96361; 96365; 96368; 96375; 99284; A9270; J0696; J2405; J2765; J7040; J7042; 99283

== ENCOUNTER 2018-08-25 11:55 | Emergency (ER) | payer BC, OTHER ==
--- NOTE | 2018-08-25 12:30 | EDM.PDOC ---
ED HPI GENERAL MEDICAL PROBLEM - General Chief Complaint: SALT CUTTER Problem Stated Complaint: 18 WKS PREG ABDOMINAL PAIN Time Seen by Provider: 08/25/18 12:00 Source of Information: Reports: Patient History Limitations: Reports: No Limitations - History of Present Illness INITIAL COMMENTS - FREE TEXT/NARRATIVE: HISTORY AND PHYSICAL: History of present illness: Patient is a 23-year-old female presents to the ED today with concern of right upper quadrant pain that started last night that she rates an 8 out of 10. Patient states currently the pain has somewhat subsided but last night she kept having several episodes of sharp pain up under her right rib. Patient is approximately 18 weeks gestation and follows along with Dr. Dumont from [facility]. Patient states that she called the clinic this morning and was told to come to the ED for evaluation. Patient states that throughout the night, she had several episodes of nausea and vomiting along with the pain. Patient states that she does have hyperemesis gravidarum throughout this so far. Patient states that the vomiting is not unusual for her but the sharp pain under her ribs is new. Patient denies any abdominal cramping or vaginal bleeding. Patient denies fever, chills, chest pain, shortness of breath, or cough. Denies headache, neck stiff ness, change in vision, syncope, or near syncope. Denies diarrhea, constipation, or dysuria. Has not noted any blood in urine or stool. Patient has been eating and drinking appropriately. Review of systems: As per history of present illness and below otherwise all systems reviewed and negative. Past medical history: As per history of present illness and as reviewed below otherwise noncontributory. Surgical history: As per history of present illness and as reviewed below otherwise noncontributory. Social history: See social history for further information Family history: As per history of present illness and as reviewed below otherwise noncontributory. Physical exam: General: Patient is alert, oriented, and in no acute distress. Patient sitting comfortably on exam table. HEENT: Atraumatic, normocephalic, pupils equal and reactive bilaterally, negative for conjunctival pallor or scleral icterus, mucous membranes moist, TMs normal bilaterally, throat clear, neck supple, nontender, trachea midline. No drooling or trismus noted. No meningeal signs. No hot potato voice noted. Lungs: Clear to auscultation, breath sounds equal bilaterally, chest nontender. Heart: S1S2, regular rate and rhythm without overt murmur Abdomen: Soft, nondistended, nontender. Uterus is approximately 20 weeks size at the umbilicus. Negative for masses or hepatosplenomegaly. Negative for costovertebral tenderness. Pelvis: Stable nontender. Genitourinary: Deferred. Rectal: Deferred. Skin: Intact, warm, dry. No lesions or rashes noted. Extremities: Atraumatic, negative for cords or calf pain. Neurovascular unremarkable. Neuro: Awake, alert, oriented. Cranial nerves II through XII unremarkable. Cerebellum unremarkable. Motor and sensory unremarkable throughout. Exam nonfocal. Notes: Dr. Forman was verbally involved in patients care. Discussed the importance for follow-up with her SALT CUTTER. Voices understanding and is agreeable to plan of care. Denies any further questions or concerns at this time. Diagnostics: CBC, CMP, hCG Quant, H pylori, lipase, ABO/Rh, UA, abdominal limited ultrasound , OB limited ultrasound Therapeutics: None Prescription: None Impression: Abdominal pain in , unspecified Anemia, unspecified Plan: 1. You can take Tylenol as directed for pain and discomfort. This medication is safe to use in . 2. Follow-up with your SALT CUTTER as discussed. 3. Return to the ED as needed and as discussed. Definitive disposition and diagnosis as appropriate pending reevaluation and review of above. abdomen Pain Score (Numeric/FACES): 8 - Related Data Allergies Allergy/AdvReac Type Severity Reaction Status Date / Time amoxicillin Allergy Hives Verified 07/16/18 20:08 Home Meds: Home Meds Szd940/FA/Omega3/Dha/Fish Oil [ Gummies] 1 tab PO DAILY 07/16/18 [ History] Past Medical History - Past Health History Medical/Surgical History: Denies Medical/Surgical History HEENT History: Reports: None Cardiovascular History: Reports: None Respiratory History: Reports: None Gastrointestinal History: Reports: None Genitourinary History: Reports: None SALT CUTTER History: Reports: Musculoskeletal History: Reports: None Neurological History: Reports: None Psychiatric History: Reports: Anxiety, Depression Endocrine/Metabolic History: Reports: None Hematologic History: Reports: None Immunologic History: Reports: None Oncologic (Cancer) History: Reports: None Dermatologic History: Reports: None - Infectious Disease History Infectious Disease History: Reports: None - Past Surgical History Head Surgeries/Procedures: Reports: None HEENT Surgical History: Reports: Oral Surgery Social & Family History - Family History Family Medical History: Noncontributory - Tobacco Use Smoking Status *Q: Never Smoker - Caffeine Use Caffeine Use: Reports: Soda - Recreational Drug Use Recreational Drug Use: No ED ROS GENERAL - Review of Systems Review Of Systems: ROS reveals no pertinent complaints other than HPI. ED EXAM, GI/ABD - Physical Exam Exam: See Below (See dictation) Course - Vital Signs Last Recorded V/S: Last Vital Signs Temp 36.6 C 08/25/18 12:06 Pulse 77 08/25/18 14:14 Resp 18 08/25/18 14:14 BP 102/68 08/25/18 14:14 Pulse Ox 99 08/25/18 14:14 - Orders/Labs/Meds Labs: Laboratory Tests 08/25/18 08/25/18 08/25/18 Range/Units 13:17 13:27 13:27 WBC 7.39 (4.0-11.0) K/uL RBC 3.92 L (4.30-5.90) M/uL Hgb 9.7 L (12.0-16.0) g/dL Hct 30.0 L (36.0-46.0) % MCV 76.5 L (80.0-98.0) fL MCH 24.7 L (27.0-32.0) pg MCHC 32.3 (31.0-37.0) g/dL RDW Std Deviation 45.6 (28.0-62.0) fl RDW Coeff of Lawrence 16 H (11.0-15.0) % Plt Count 180 (150-400) K/uL MPV 9.70 (7.40-12.00) fL Neut % (Auto) 69.5 (48.0-80.0) % Lymph % (Auto) 21.5 (16.0-40.0) % [place] % (Auto) 7.8 (0.0-15.0) % Eos % (Auto) 0.9 (0.0-7.0) % Baso % (Auto) 0.3 (0.0-1.5) % Neut # (Auto) 5.1 (1.4-5.7) K/uL Lymph # (Auto) 1.6 (0.6-2.4) K/uL [place] # (Auto) 0.6 (0.0-0.8) K/uL Eos # (Auto) 0.1 (0.0-0.7) K/uL Baso # (Auto) 0.0 (0.0-0.1) K/uL Nucleated RBC % 0.0 /100WBC Nucleated RBCs # 0 K/uL Sodium 139 (136-145) mmol/L Potassium 3.9 (3.5-5.1) mmol/L Chloride 105 (98-107) mmol/L Carbon Dioxide 23.7 (21.0-32.0) mmol/L BUN 6 L (7.0-18.0) mg/dL Creatinine 0.6 (0.6-1.0) mg/dL Est Cr Clr Drug Dosing 116.32 mL/min Estimated GFR (MDRD) > 60.0 ml/min Glucose 77 (74-106) mg/dL Calcium 8.8 (8.5-10.1) mg/dL Total Bilirubin 0.3 (0.2-1.0) mg/dL AST 17 (15-37) IU/L ALT 22 (14-63) IU/L Alkaline Phosphatase 51 (46-116) U/L Total Protein 6.8 (6.4-8.2) g/dL Albumin 3.2 L (3.4-5.0) g/dL Globulin 3.6 (2.6-4.0) g/dL Albumin/Globulin Ratio 0.9 (0.9-1.6) Lipase (73-393) U/L HCG, Quant 05067.0 mIU/mL Urine Color Urine Appearance Urine pH (5.0-8.0) Ur Specific [place] (1.001-1.035) Urine Protein (NEGATIVE) mg/dL Urine Glucose (UA) (NEGATIVE) mg/dL Urine Ketones (NEGATIVE) mg/dL Urine Occult Blood (NEGATIVE) Urine Nitrite (NEGATIVE) Urine Bilirubin (NEGATIVE) Urine Urobilinogen (<2.0) EU/dL Ur Leukocyte Esterase (NEGATIVE) H. pylori IgG Antibody (NEG) Blood Type AB POSITIVE 08/25/18 08/25/18 08/25/18 Range/Units 13:27 13:27 14:19 WBC (4.0-11.0) K/uL RBC (4.30-5.90) M/uL Hgb (12.0-16.0) g/dL Hct (36.0-46.0) % MCV (80.0-98.0) fL MCH (27.0-32.0) pg MCHC (31.0-37.0) g/dL RDW Std Deviation (28.0-62.0) fl RDW Coeff of Lawrence (11.0-15.0) % Plt Count (150-400) K/uL MPV (7.40-12.00) fL Neut % (Auto) (48.0-80.0) % Lymph % (Auto) (16.0-40.0) % Carl[place] % (Auto) (0.0-15.0) % Eos % (Auto) (0.0-7.0) % Baso % (Auto) (0.0-1.5) % Neut # (Auto) (1.4-5.7) K/uL Lymph # (Auto) (0.6-2.4) K/uL [place] # (Auto) (0.0-0.8) K/uL Eos # (Auto) (0.0-0.7) K/uL Baso # (Auto) (0.0-0.1) K/uL Nucleated RBC % /100WBC Nucleated RBCs # K/uL Sodium (136-145) mmol/L Potassium (3.5-5.1) mmol/L Chloride (98-107) mmol/L Carbon Dioxide (21.0-32.0) mmol/L BUN (7.0-18.0) mg/dL Creatinine (0.6-1.0) mg/dL Est Cr Clr Drug Dosing mL/min Estimated GFR (MDRD) ml/min Glucose (74-106) mg/dL Calcium (8.5-10.1) mg/dL Total Bilirubin (0.2-1.0) mg/dL AST (15-37) IU/L ALT (14-63) IU/L Alkaline Phosphatase (46-116) U/L Total Protein (6.4-8.2) g/dL Albumin (3.4-5.0) g/dL Globulin (2.6-4.0) g/dL Albumin/Globulin Ratio (0.9-1.6) Lipase 134 (73-393) U/L HCG, Quant mIU/mL Urine Color YELLOW Urine Appearance CLEAR Urine pH 8.0 (5.0-8.0) Ur Specific [place] 1.010 (1.001-1.035) Urine Protein NEGATIVE (NEGATIVE) mg/dL Urine Glucose (UA) NEGATIVE (NEGATIVE) mg/dL Urine Ketones NEGATIVE (NEGATIVE) mg/dL Urine Occult Blood NEGATIVE (NEGATIVE) Urine Nitrite NEGATIVE (NEGATIVE) Urine Bilirubin NEGATIVE (NEGATIVE) Urine Urobilinogen 0.2 (<2.0) EU/dL Ur Leukocyte Esterase NEGATIVE (NEGATIVE) H. pylori IgG Antibody NEGATIVE (NEG) Blood Type Departure - Departure Time of Disposition: 14:47 Disposition: Home, Self-Care 01 Clinical Impression: Abdominal pain during Qualifiers: Trimester: second trimester Qualified Code(s): O26.892 - Other specified related conditions, second trimester Anemia Qualifiers: Anemia type: unspecified type Qualified Code(s): D64.9 - Anemia, unspecified - Discharge Information Referrals: PCP,None [Primary Care Provider] - Forms: ED Department Discharge Additional Instructions: The following information is given to patients seen in the emergency department who are being discharged to home. This information is to outline your options for follow-up care. We provide all patients seen in our emergency department with a follow-up referral. The need for follow-up, as well as the timing and circumstances, are variable depending upon the specifics of your emergency department visit. If you don't have a primary care physician on staff, we will provide you with a referral. We always advise you to contact your personal physician following an emergency department visit to inform them of the circumstance of the visit and for follow-up with them and/or the need for any referrals to a consulting specialist. The emergency department will also refer you to a specialist when appropriate. This referral assures that you have the opportunity for follow-up care with a specialist. All of these measure are taken in an effort to provide you with optimal care, which includes your follow-up. Under all circumstances we always encourage you to contact your private physician who remains a resource for coordinating your care. When calling for follow-up care, please make the office aware that this follow-up is from your recent emergency room visit. If for any reason you are refused follow-up, please contact the [facility] Emergency Department at and asked to speak to the emergency department charge nurse. [facility] [address] [place] [id number] [address] 1. You can take Tylenol as directed for pain and discomfort. This medication is safe to use in . 2. Follow-up with your SALT CUTTER as discussed. 3. Return to the ED as needed and as discussed.
--- NOTE | 2018-08-25 13:13 | US ---
EXAMINATION: Right upper quadrant ultrasound HISTORY: Pain COMPARISON: None TECHNIQUE: Grayscale and color Doppler imaging obtained of the right upper quadrant. FINDINGS: The visualized pancreas appears normal. The liver is normal in contour and echotexture without a focal hepatic mass. The gallbladder wall thickness is normal. No pericholecystic fluid or shadowing gallstones. Common bile duct measures 2 mm. The right kidney measures 11 cm [id number]. Mild prominence of the renal pelvis without significant caliectasis. IMPRESSION: 1. Mild right-sided hydronephrosis.
--- NOTE | 2018-08-25 13:15 | US ---
EXAMINATION: Transabdominal obstetric ultrasound HISTORY: Pain COMPARISON: None TECHNIQUE: Grayscale, color Doppler, and spectral Doppler imaging obtained. FINDINGS: There is a single live intrauterine in a cephalic position. Placenta is anterior and appears intact. heart rate is 139 bpm. The biparietal diameter measures 3.9 cm, head circumference measures 14.3 cm, abdominal discomfort measures 12.4 cm, the femoral length measures 2.6 cm. Overall the fetus is within the 68 percentile. Estimated weight is 217 g. Estimated gestational by ultrasound is 18 weeks and 0 days with an estimated date of delivery at 01/26/2019. Amniotic fluid level appears normal. IMPRESSION: 1. Single live intrauterine in cephalic position.
[2018-08-25 14:35] LABS: CHLORIDE,CL 105 mmol/L (98-107); SODIUM,NA 139 mmol/L (136-145)
== END 2018-08-25 15:00 | disposition home or self-care (01) ==
LOC: MW.ED 11:55
DX: O99.89 Other specified diseases and conditions complicating pregnancy, childbirth and the puerperium (principal); R10.11 Right upper quadrant pain; O99.012 Anemia complicating pregnancy, second trimester; Z3A.18 18 weeks gestation of pregnancy; Z88.1 Allergy status to other antibiotic agents; Z79.899 Other long term (current) drug therapy
CPT/HCPCS: 36415; 76705; 76705-26; 76815; 76815-26; 80053; 81003; 83690; 84702; 85025; 86677; 86900; 86901; 99284-25

== ENCOUNTER 2019-01-25 08:11 | Inpatient (IN) | payer OTHER, BC ==
[2019-01-25] MEDS ORDERED: Tranexamic Acid 1,000 MG in Sodium Chloride 0.9% 100 ML IV PRN (08:28)
[2019-01-25] MEDS ORDERED: Methylergonovine 0.2 MG/1 ML Amp IM PRN (08:28)
[2019-01-25] MEDS ORDERED: Butorphanol 1 MG/ML SDV IVPUSH PRN (08:28)
[2019-01-25] MEDS ORDERED: Misoprostol 200 MCG Tab PO PRN (08:28)
[2019-01-25] MEDS ORDERED: Sodium Chloride 0.9% 10 ML SDV IV PRN (08:28)
[2019-01-25] MEDS ORDERED: Lidocaine 1% 50 ML MDV INJECT PRN (08:28)
[2019-01-25] MEDS ORDERED: Nalbuphine 10 MG/1 ML Vial IVPUSH PRN (08:28)
[2019-01-25] MEDS ORDERED: Sodium Chloride 0.9% 10 ML Syringe FLUSH PRN (08:28)
[2019-01-25] MEDS ORDERED: Carboprost Tromethamine 250 MCG/1 ML Amp IM PRN (08:28)
[2019-01-25] MEDS ORDERED: Water For Irrigation,Sterile 1,000 ML Container IRR PRN (08:28)
[2019-01-25] MEDS ORDERED: Sodium Chloride 0.9% 2.5 ML Syringe FLUSH PRN (08:28)
[2019-01-25] MEDS ORDERED: Oxytocin/0.9 % Sodium Chloride 30 UNIT/500 ML BAG IV SCH ×2 (08:30→09:30)
[2019-01-25] MEDS: ceFAZolin 1 GM in Premix Bag 1 BAG IV SCH ×2 (09:00→16:57)
[2019-01-25] MEDS: Lactated Ringers 1,000 ML IV SCH ×2 (09:00→18:24)
[2019-01-25] MEDS ORDERED: Misoprostol 25 MCG (1/4 of 100 MCG) Tab VAG PRN ×2 (09:22)
[2019-01-25] MEDS ORDERED: Terbutaline 1 MG/ML SDV SUBCUT PRN (09:22)
--- NOTE | 2019-01-25 18:02 | PCM.PREANE ---
Preanesthetic Assessment - Anesthesia/Transfusion/Family Hx Anesthesia History: Prior Anesthesia Without Reaction Family History of Anesthesia Reaction: No Transfusion History: No Prior Transfusion(s) - Review of Systems General: No Symptoms Pulmonary: No Symptoms Cardiovascular: No Symptoms Gastrointestinal: No Symptoms Neurological: No Symptoms Other: Reports: None - Physical Assessment Height: 5 ft 2 in Weight: 72.121 kg ASA Class: 2 Mental Status: Alert & Oriented x3 Airway Class: Mallampati = 2 Dentition: Reports: Normal Dentition Thyro-Mental Finger Breadths: 3 Mouth Opening Finger Breadths: 3 ROM/Head Extension: Full Lungs: Clear to Auscultation, Normal Respiratory Effort Cardiovascular: Regular Rate, Regular Rhythm - Lab Values: Laboratory Last Values WBC 7.89 K/uL (4.0-11.0) 01/25/19 08:55 RBC 4.32 M/uL (4.30-5.90) 01/25/19 08:55 Hgb 10.7 g/dL (12.0-16.0) L 01/25/19 08:55 Hct 33.7 % (36.0-46.0) L 01/25/19 08:55 MCV 78.0 fL (80.0-98.0) L 01/25/19 08:55 MCH 24.8 pg (27.0-32.0) L 01/25/19 08:55 MCHC 31.8 g/dL (31.0-37.0) 01/25/19 08:55 RDW Std Deviation 51.6 fl (28.0-62.0) 01/25/19 08:55 RDW Coeff of Lawrence 18 % (11.0-15.0) H 01/25/19 08:55 Plt Count 196 K/uL (150-400) 01/25/19 08:55 MPV 10.30 fL (7.40-12.00) 01/25/19 08:55 Nucleated RBC % 0.0 /100WBC 01/25/19 08:55 Nucleated RBCs # 0 K/uL 01/25/19 08:55 Blood Type AB POSITIVE 01/25/19 08:55 Antibody Screen NEGATIVE 01/25/19 08:55 - Allergies Allergies/Adverse Reactions: Allergies Allergy/AdvReac Type Severity Reaction Status Date / Time amoxicillin Allergy Hives Verified 12/22/18 18:53 - Acknowledgements Anesthesia Type Planned: Epidural Pt an Appropriate Candidate for the Planned Anesthesia: Yes Alternatives and Risks of Anesthesia Discussed w Pt/Guardian: Yes Pt/Guardian Understands and Agrees with Anesthesia Plan: Yes PreAnesthesia Questionnaire - Past Health History Medical/Surgical History: Denies Medical/Surgical History HEENT History: Reports: Impaired Vision Cardiovascular History: Reports: None Respiratory History: Reports: Asthma Gastrointestinal History: Reports: GERD, Other (See Below) Other Gastrointestinal History: heartburn with Genitourinary History: Reports: None MOVIE EXTRA History: 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, : 1 Para: 0 LMP (Approximate): Musculoskeletal History: Reports: Fracture Neurological History: Reports: None Psychiatric History: Reports: Anxiety, Depression Endocrine/Metabolic History: Reports: None Hematologic History: Reports: Anemia Immunologic History: Reports: None Oncologic (Cancer) History: Reports: None Dermatologic History: Reports: Eczema - Infectious Disease History Infectious Disease History: Reports: None - Past Surgical History Head Surgeries/Procedures: Reports: None HEENT Surgical History: Reports: Oral Surgery Other HEENT Surgeries/Procedures: [place] teeth extraction GI Surgical History: Reports: None Female Surgical History: Reports: None - SUBSTANCE USE Smoking Status *Q: Never Smoker Second Hand Smoke Exposure: No Recreational Drug Use History: No - HOME MEDS Home Medications: Home Meds Klb035/FA/Omega3/Dha/Fish Oil [ Gummies] 1 tab PO DAILY 07/16/18 [ History] - CURRENT (IN HOUSE) MEDS Current Meds: Current Medications Butorphanol Tartrate (Stadol) 1 mg IVPUSH Q1H PRN PRN Reason: Pain Last Admin: 01/25/19 16:51 Dose: 1 mg Carboprost Tromethamine (Hemabate Ds) 250 mcg IM ASDIRECTED PRN PRN Reason: Post Hemorrhage Cefazolin Sodium/Dextrose 1 gm (/ Premix) 50 mls @ 100 mls/hr IV Q8H [facility] Last Admin: 01/25/19 16:57 Dose: 100 mls/hr Lactated Ringer's (Ringers, Lactated) 1,000 mls @ 150 mls/hr IV ASDIRECTED [facility] Last Admin: 01/25/19 09:00 Dose: 150 mls/hr Oxytocin/Sodium Chloride (Oxytocin 30 Unit/500 Ml-Ns) 30 unit in 500 mls @ 500 mls/hr IV TITRATE JEZ Tranexamic Acid 1,000 mg/ (Sodium Chloride) 110 mls @ 660 mls/hr IV ONETIME PRN PRN Reason: Bleeding Oxytocin/Sodium Chloride (Oxytocin 30 Unit/500 Ml-Ns) 30 unit in 500 mls @ 2 mls/hr IV TITRATE JEZ; Protocol Lidocaine HCl (Xylocaine 1%) 50 ml INJECT ONETIME PRN PRN Reason: Laceration repair Methylergonovine Maleate (Methergine) 0.2 mg IM ASDIRECTED PRN PRN Reason: Post Hemorrhage Misoprostol (Cytotec) 200 mcg PO ONETIME PRN PRN Reason: Post Hemorrhage Misoprostol (Cytotec) 25 mcg VAG ONETIME PRN PRN Reason: Cervical Ripening Last Admin: 01/25/19 09:48 Dose: 25 mcg Misoprostol (Cytotec) 25 mcg VAG Q4H PRN PRN Reason: Cervical Ripening Last Admin: 01/25/19 13:49 Dose: 25 mcg Nalbuphine HCl (Nubain) 10 mg IVPUSH Q1H PRN PRN Reason: Pain (severe 7-10) Ondansetron HCl (Zofran) 4 mg IVPUSH Q6H PRN PRN Reason: Nausea/Vomiting Sodium Chloride (Saline Flush) 10 ml FLUSH ASDIRECTED PRN PRN Reason: Keep Vein Open Sodium Chloride (Saline Flush) 2.5 ml FLUSH ASDIRECTED PRN PRN Reason: Keep Vein Open Sodium Chloride (Normal Saline) 10 ml IV ASDIRECTED PRN PRN Reason: IV Use Sterile Water (Sterile Water For Irrigation) 1,000 ml IRR ASDIRECTED PRN PRN Reason: delivery Terbutaline Sulfate (Brethine) 0.25 mg SUBCUT ASDIRECTED PRN PRN Reason: Tacysystole
[2019-01-25] MEDS: Ondansetron 4 MG/2 ML SDV IVPUSH PRN (19:10)
[2019-01-26] MEDS ORDERED: Bupivacaine 0.5% 10 ML SDV ONE (00:36)
[2019-01-26] MEDS: ceFAZolin 1 GM in Premix Bag 1 BAG IV SCH (01:13)
[2019-01-26] MEDS: Ondansetron 4 MG/2 ML SDV IVPUSH PRN (02:15)
[2019-01-26] MEDS ORDERED: oxyCODONE 5 MG Tab PO PRN (04:50)
[2019-01-26] MEDS ORDERED: Witch Hazel Medicated Pads 40/Jar TOP PRN (04:50)
[2019-01-26] MEDS ORDERED: Simethicone 80 MG Tab.Chew PO PRN (04:50)
[2019-01-26] MEDS ORDERED: Acetaminophen 500 MG Tab PO PRN (04:50)
[2019-01-26] MEDS ORDERED: Docusate Sodium 100 MG Cap PO PRN (04:50)
[2019-01-26] MEDS ORDERED: Famotidine 20 MG Tab PO PRN (04:50)
[2019-01-26] MEDS ORDERED: Ibuprofen 400 MG Tab PO PRN (04:50)
[2019-01-26] MEDS ORDERED: Bisacodyl 10 MG Supp RECTAL PRN (04:50)
[2019-01-26] MEDS ORDERED: Benzocaine/Menthol 20%-0.5% Spray 78 GM Cannister TOP PRN (04:50)
--- NOTE | 2019-01-26 04:50 | PCM.OPNOTE ---
- General Post-Op/Procedure Note Date of Surgery/Procedure: 01/26/19 Operative Procedure(s): Spontaneous vaginal delivery Findings: Live female infant, Apgars 8/9, weight 3420g, cord gases pending, nuchal cord x2 Pre Op Diagnosis: 23yo at 39w4d gestation. Spontaneous rupture of membranes Post-Op Diagnosis: same Anesthesia Technique: Epidural Primary Surgeon: Monalisa Grant Pathology: cord blood, cord gases, placenta EBL in mLs: 500 Complications: Second degree laceration- repaired; bilateral labial lacerations - hemostatic without repair Condition: Stable
[2019-01-26] MEDS: Lanolin 100% Cream 7 GM Tube TOP PRN ×2 (07:51→21:05)
--- NOTE | 2019-01-26 08:07 | OR ---
SURGEON: Monalisa Grant MD DATE OF PROCEDURE: 01/26/2019 PROCEDURE: Spontaneous vaginal delivery and repair of second-degree laceration. PREOPERATIVE DIAGNOSES: 1. A 23-year-old, , at 39 weeks and 4 days gestation, being induced after premature rupture of membranes. 2. Group B streptococcus positive, on Ancef prophylaxis. POSTOPERATIVE DIAGNOSES: 1. A 23-year-old, , at 39 weeks and 4 days gestation, being induced after premature rupture of membranes. 2. Group B streptococcus positive, on Ancef prophylaxis. PRIMARY SURGEON: Monalisa Grant M.D. ESTIMATED BLOOD LOSS: 500 mL. FINDINGS: Live female in cephalic presentation. scores 8 and 9 at 1 and 5 minutes respectively. Cord gases pending. Weight 3420 g. Nuchal cord x2. PATHOLOGY: Cord blood, cord gases, placenta. DESCRIPTION OF PROCEDURE: The patient presented to Labor and Delivery with spontaneous rupture of membranes. Her cervix was closed upon presentation. She was induced with Cytotec followed by Pitocin. She was given Ancef for GBS prophylaxis. She received an epidural for anesthesia during labor. She progressed to complete cervical dilatation. She pushed and delivered a live female infant. The head was delivered followed by the remainder of body. The was placed on the maternal abdomen. Nuchal cord x2 was reduced after delivery of the baby. After approximately 60 seconds of delayed cord clamping, the cord was clamped and cut. The placenta was delivered spontaneously with gentle traction on the cord and suprapubic pressure, and it was intact and with 3-vessel cord. Cord gases and cord blood were obtained. The perineum was inspected, bilateral labial lacerations and a second-degree laceration were noted. The second-degree was repaired with 2-0 Vicryl to anatomy and hemostasis. By the end of repair, bilateral labial lacerations were hemostatic without repair. Estimated blood loss was 500 mL. The patient and baby tolerated the delivery well. [id number] / MODL /[id number] BURKE
[2019-01-26] MEDS: Iron Polysaccharides Complex 150 MG Cap PO SCH (09:00)
[2019-01-26] MEDS: Ibuprofen 800 MG Tab PO PRN (16:57)
[2019-01-27] MEDS: Ibuprofen 800 MG Tab PO PRN ×2 (03:50→20:33)
--- NOTE | 2019-01-27 08:03 | PCM.PNPP ---
- General Info Date of Service: 01/27/19 Subjective Update: Hgb 6.9 this AM. Denies any weakness, dizziness or fatigue. Bleeding is light. Functional Status: Reports: Pain Controlled, Tolerating Diet, Ambulating, Urinating - Review of Systems General: Reports: No Symptoms HEENT: Reports: No Symptoms Pulmonary: Reports: No Symptoms Cardiovascular: Reports: No Symptoms Gastrointestinal: Reports: No Symptoms Genitourinary: Reports: No Symptoms Musculoskeletal: Reports: No Symptoms Skin: Reports: No Symptoms Neurological: Reports: No Symptoms Psychiatric: Reports: No Symptoms - Patient Data Vital Signs - Most Recent: Last Vital Signs Temp 36.4 C 01/27/19 05:00 Pulse 74 01/27/19 05:00 Resp 16 01/27/19 05:00 BP 113/72 01/27/19 05:00 Pulse Ox 98 01/27/19 05:00 Weight - Most Recent: 159 lb Lab Results - Last 24 Hours: Laboratory Results - last 24 hr 01/27/19 Range/Units 06:20 Hgb 6.9 L (12.0-16.0) g/dL Hct 22.2 L (36.0-46.0) % Med Orders - Current: Current Medications Acetaminophen (Tylenol Extra Strength) 500 mg PO Q4H PRN PRN Reason: Pain Last Admin: 01/26/19 21:06 Dose: 500 mg Acetaminophen (Tylenol Extra Strength) 1,000 mg PO Q4H PRN PRN Reason: Pain Benzocaine/Menthol (Dermoplast Pain Relief 20%-0.5% [place]) 78 gm TOP ASDIRECTED PRN PRN Reason: Perineal Comfort Measure Last Admin: 01/26/19 07:51 Dose: 1 can Bisacodyl (Dulcolax) 10 mg RECTAL ONETIME PRN PRN Reason: Constipation Butorphanol Tartrate (Stadol) 1 mg IVPUSH Q1H PRN PRN Reason: Pain Last Admin: 01/25/19 16:51 Dose: 1 mg Carboprost Tromethamine (Hemabate Ds) 250 mcg IM ASDIRECTED PRN PRN Reason: Post Hemorrhage Docusate Sodium (Colace) 100 mg PO BID PRN PRN Reason: Constipation Last Admin: 01/26/19 21:05 Dose: 100 mg Emollient Ointment (Lansinoh Hpa) 0 gm TOP ASDIRECTED PRN PRN Reason: Sore Nipples Last Admin: 01/26/19 21:05 Dose: 1 gm Famotidine (Pepcid) 20 mg PO BID PRN PRN Reason: Heartburn Lactated Ringer's (Ringers, Lactated) 1,000 mls @ 150 mls/hr IV ASDIRECTED [facility] Last Admin: 01/25/19 18:24 Dose: 999 mls/hr Tranexamic Acid 1,000 mg/ (Sodium Chloride) 110 mls @ 660 mls/hr IV ONETIME PRN PRN Reason: Bleeding Ibuprofen (Motrin) 400 mg PO Q4H PRN PRN Reason: Pain Ibuprofen (Motrin) 800 mg PO Q6H PRN PRN Reason: Pain Last Admin: 01/27/19 03:50 Dose: 800 mg Methylergonovine Maleate (Methergine) 0.2 mg IM ASDIRECTED PRN PRN Reason: Post Hemorrhage Misoprostol (Cytotec) 200 mcg PO ONETIME PRN PRN Reason: Post Hemorrhage Oxycodone HCl (Oxycodone) 5 mg PO Q2H PRN PRN Reason: Pain Last Admin: 01/26/19 21:06 Dose: 5 mg Polysaccharide Iron Complex (Ferrex 150) 150 mg PO DAILY [facility] Last Admin: 01/26/19 09:00 Dose: Not Given Simethicone (Simethicone) 80 mg PO Q4H PRN PRN Reason: Gas Sodium Chloride (Saline Flush) 10 ml FLUSH ASDIRECTED PRN PRN Reason: Keep Vein Open Sodium Chloride (Saline Flush) 2.5 ml FLUSH ASDIRECTED PRN PRN Reason: Keep Vein Open Sodium Chloride (Normal Saline) 10 ml IV ASDIRECTED PRN PRN Reason: IV Use Witch Hortencia (Tucks) 1 pad TOP ASDIRECTED PRN PRN Reason: comfort care Last Admin: 01/26/19 07:50 Dose: 1 tub Discontinued Medications Bupivacaine HCl (Sensorcaine-Mpf 0.5%) Confirm Administered Dose 10 ml .ROUTE .[facility] ONE Stop: 01/26/19 00:37 Last Admin: 01/26/19 01:26 Dose: Not Given Cefazolin Sodium/Dextrose 1 gm (/ Premix) 50 mls @ 100 mls/hr IV Q8H JEZ Last Admin: 01/26/19 01:13 Dose: 100 mls/hr Oxytocin/Sodium Chloride (Oxytocin 30 Unit/500 Ml-Ns) 30 unit in 500 mls @ 500 mls/hr IV TITRATE JEZ Oxytocin/Sodium Chloride (Oxytocin 30 Unit/500 Ml-Ns) 30 unit in 500 mls @ 2 mls/hr IV TITRATE JEZ; Protocol Last Titration: 01/26/19 04:02 Dose: 999 mls/hr Fentanyl/Bupivacaine HCl (Ixgreevd-Jldgj-Fq 2 Mcg/Ml-0.125%) Confirm Administered Dose 100 mls @ as directed .ROUTE .[facility] ONE Stop: 01/25/19 18:08 Last Admin: 01/25/19 19:38 Dose: Not Given Fentanyl/Bupivacaine HCl (Jimxprxv-Xryhs-Yg 2 Mcg/Ml-0.125%) Confirm Administered Dose 100 mls @ as directed .ROUTE .[facility] ONE Stop: 01/25/19 22:34 Last Admin: 01/25/19 22:43 Dose: Not Given Lidocaine HCl (Xylocaine 1%) 50 ml INJECT ONETIME PRN PRN Reason: Laceration repair Misoprostol (Cytotec) 25 mcg VAG ONETIME PRN PRN Reason: Cervical Ripening Last Admin: 01/25/19 09:48 Dose: 25 mcg Misoprostol (Cytotec) 25 mcg VAG Q4H PRN PRN Reason: Cervical Ripening Last Admin: 01/25/19 13:49 Dose: 25 mcg Nalbuphine HCl (Nubain) 10 mg IVPUSH Q1H PRN PRN Reason: Pain (severe 7-10) Ondansetron HCl (Zofran) 4 mg IVPUSH Q6H PRN PRN Reason: Nausea/Vomiting Last Admin: 01/26/19 02:15 Dose: 4 mg Sterile Water (Sterile Water For Irrigation) 1,000 ml IRR ASDIRECTED PRN PRN Reason: delivery Last Admin: 01/26/19 04:13 Dose: 1,000 ml Terbutaline Sulfate (Brethine) 0.25 mg SUBCUT ASDIRECTED PRN PRN Reason: Tacysystole - Interaction Infant Disposition, : at Bedside Interaction: Holding Feeding: Breastfed Infant; Nursed Well Support Person: - Recovery Exam Fundal Tone: Firm Fundal Level: At Umbilicus Fundal Placement: Midline Lochia Amount: Scant, Small Lochia Color: Rubra/Red Perineum Description: Intact, Minimal Bruising/Swelling Episiotomy/Laceration: Approximated Bladder Status: Voiding Urinary Elimination: Voided - Exam General: Alert, Oriented, No Acute Distress Lungs: Normal Respiratory Effort GI/Abdominal Exam: Soft, Non-Tender, No Distention Extremities: Normal Inspection, Non-Tender, No Pedal Edema Wound/Incisions: Healing Well Psy/Mental Status: Alert, Normal Affect, Normal Mood - Problem List Review Problem List Initiated/Reviewed/Updated: Yes - My Orders Last 24 Hours: My Active Orders 01/27/19 07:55 Transfuse PRBC [Transfuse Red Blood Cells] [COMM] Urgent - Assessment Assessment:: 23yo s/p at 39w4d. Anemia due to acute blood loss, stable. - Hgb from 10.7 to 6.9 this AM, bleeding light, asymptomatic currently. Will transfuse 2u pRBCs, repeat CBC in AM - ambulate - regular diet - motrin PRN for pain - continue inpatient until PPD2
[2019-01-27] MEDS: ceFAZolin 1 GM in Premix Bag 1 BAG IV SCH (09:14)
[2019-01-27] MEDS: Iron Polysaccharides Complex 150 MG Cap PO SCH (09:48)
--- NOTE | 2019-01-27 12:14 | PCM48HPAN ---
Post Anesthesia Note - EVALUATION WITHIN 48HRS OF ANESTHETIC Vital Signs in Normal Range: Yes Patient Participated in Evaluation: Yes Respiratory Function Stable: Yes Airway Patent: Yes Cardiovascular Function Stable: Yes Hydration Status Stable: Yes Pain Control Satisfactory: Yes Nausea and Vomiting Control Satisfactory: Yes Mental Status Recovered: Yes Vital Signs: Last Vital Signs Temp 36.6 C 01/27/19 11:40 Pulse 83 01/27/19 11:40 Resp 16 01/27/19 11:40 BP 110/68 01/27/19 11:40 Pulse Ox 99 01/27/19 11:40 - COMMENTS/OBSERVATIONS Free Text/Narrative:: Doing well. No problems noted.
[2019-01-27] MEDS: Acetaminophen 500 MG Tab PO PRN ×2 (16:29→21:05)
[2019-01-28] MEDS: Ibuprofen 800 MG Tab PO PRN (07:21)
[2019-01-28] MEDS: Iron Polysaccharides Complex 150 MG Cap PO SCH (09:25)
--- NOTE | 2019-01-28 12:12 | PCM.PNPP ---
- General Info Date of Service: 01/28/19 Functional Status: Reports: Pain Controlled, Tolerating Diet, Ambulating, Urinating - Review of Systems General: Reports: No Symptoms HEENT: Reports: No Symptoms Pulmonary: Reports: No Symptoms Cardiovascular: Reports: No Symptoms Gastrointestinal: Reports: No Symptoms Genitourinary: Reports: No Symptoms Musculoskeletal: Reports: No Symptoms Skin: Reports: No Symptoms Neurological: Reports: No Symptoms Psychiatric: Reports: No Symptoms - General Info Date of Service: 01/28/19 - Patient Data Vital Signs - Most Recent: Last Vital Signs Temp 36.8 C 01/28/19 07:20 Pulse 69 01/28/19 07:20 Resp 16 01/28/19 07:20 BP 115/76 01/28/19 07:20 Pulse Ox 97 01/28/19 07:20 Weight - Most Recent: 159 lb I&O - Last 24 Hours: Intake & Output 01/27/19 01/28/19 01/28/19 22:59 06:59 14:59 Intake Total 293 Balance 293 Lab Results - Last 24 Hours: Laboratory Results - last 24 hr 01/25/19 01/27/19 Range/Units 08:55 20:14 Hgb 9.6 L (12.0-16.0) g/dL Hct 29.6 L (36.0-46.0) % Blood Type AB POSITIVE Antibody Screen NEGATIVE Crossmatch See Detail Med Orders - Current: Current Medications Acetaminophen (Tylenol Extra Strength) 500 mg PO Q4H PRN PRN Reason: Pain Last Admin: 01/26/19 21:06 Dose: 500 mg Acetaminophen (Tylenol Extra Strength) 1,000 mg PO Q4H PRN PRN Reason: Pain Last Admin: 01/27/19 21:05 Dose: 1,000 mg Benzocaine/Menthol (Dermoplast Pain Relief 20%-0.5% [place]) 78 gm TOP ASDIRECTED PRN PRN Reason: Perineal Comfort Measure Last Admin: 01/26/19 07:51 Dose: 1 can Bisacodyl (Dulcolax) 10 mg RECTAL ONETIME PRN PRN Reason: Constipation Butorphanol Tartrate (Stadol) 1 mg IVPUSH Q1H PRN PRN Reason: Pain Last Admin: 01/25/19 16:51 Dose: 1 mg Carboprost Tromethamine (Hemabate Ds) 250 mcg IM ASDIRECTED PRN PRN Reason: Post Hemorrhage Docusate Sodium (Colace) 100 mg PO BID PRN PRN Reason: Constipation Last Admin: 01/26/19 21:05 Dose: 100 mg Emollient Ointment (Lansinoh Hpa) 0 gm TOP ASDIRECTED PRN PRN Reason: Sore Nipples Last Admin: 01/26/19 21:05 Dose: 1 gm Famotidine (Pepcid) 20 mg PO BID PRN PRN Reason: Heartburn Lactated Ringer's (Ringers, Lactated) 1,000 mls @ 150 mls/hr IV ASDIRECTED JEZ Last Admin: 01/25/19 18:24 Dose: 999 mls/hr Tranexamic Acid 1,000 mg/ (Sodium Chloride) 110 mls @ 660 mls/hr IV ONETIME PRN PRN Reason: Bleeding Ibuprofen (Motrin) 400 mg PO Q4H PRN PRN Reason: Pain Ibuprofen (Motrin) 800 mg PO Q6H PRN PRN Reason: Pain Last Admin: 01/28/19 07:21 Dose: 800 mg Methylergonovine Maleate (Methergine) 0.2 mg IM ASDIRECTED PRN PRN Reason: Post Hemorrhage Misoprostol (Cytotec) 200 mcg PO ONETIME PRN PRN Reason: Post Hemorrhage Oxycodone HCl (Oxycodone) 5 mg PO Q2H PRN PRN Reason: Pain Last Admin: 01/26/19 21:06 Dose: 5 mg Polysaccharide Iron Complex (Ferrex 150) 150 mg PO DAILY [facility] Last Admin: 01/28/19 09:25 Dose: Not Given Simethicone (Simethicone) 80 mg PO Q4H PRN PRN Reason: Gas Sodium Chloride (Saline Flush) 10 ml FLUSH ASDIRECTED PRN PRN Reason: Keep Vein Open Sodium Chloride (Saline Flush) 2.5 ml FLUSH ASDIRECTED PRN PRN Reason: Keep Vein Open Last Admin: 01/27/19 20:34 Dose: 2.5 ml Sodium Chloride (Normal Saline) 10 ml IV ASDIRECTED PRN PRN Reason: IV Use Witch Hortencia (Tucks) 1 pad TOP ASDIRECTED PRN PRN Reason: comfort care Last Admin: 01/26/19 07:50 Dose: 1 tub Discontinued Medications Bupivacaine HCl (Sensorcaine-Mpf 0.5%) Confirm Administered Dose 10 ml .ROUTE .[employer] [place] ONE Stop: 01/26/19 00:37 Last Admin: 01/26/19 01:26 Dose: Not Given Cefazolin Sodium/Dextrose 1 gm (/ Premix) 50 mls @ 100 mls/hr IV Q8H JEZ Last Admin: 01/27/19 09:14 Dose: Not Given Oxytocin/Sodium Chloride (Oxytocin 30 Unit/500 Ml-Ns) 30 unit in 500 mls @ 500 mls/hr IV TITRATE JEZ Oxytocin/Sodium Chloride (Oxytocin 30 Unit/500 Ml-Ns) 30 unit in 500 mls @ 2 mls/hr IV TITRATE JEZ; Protocol Last Titration: 01/26/19 04:02 Dose: 999 mls/hr Fentanyl/Bupivacaine HCl (Xwukgvzb-Wwenz-Eb 2 Mcg/Ml-0.125%) Confirm Administered Dose 100 mls @ as directed .ROUTE .[employer] [place] ONE Stop: 01/25/19 18:08 Last Admin: 01/25/19 19:38 Dose: Not Given Fentanyl/Bupivacaine HCl (Dufkhkbi-Wqfkk-Ft 2 Mcg/Ml-0.125%) Confirm Administered Dose 100 mls @ as directed .ROUTE .[employer] [place] ONE Stop: 01/25/19 22:34 Last Admin: 01/25/19 22:43 Dose: Not Given Lidocaine HCl (Xylocaine 1%) 50 ml INJECT ONETIME PRN PRN Reason: Laceration repair Misoprostol (Cytotec) 25 mcg VAG ONETIME PRN PRN Reason: Cervical Ripening Last Admin: 01/25/19 09:48 Dose: 25 mcg Misoprostol (Cytotec) 25 mcg VAG Q4H PRN PRN Reason: Cervical Ripening Last Admin: 01/25/19 13:49 Dose: 25 mcg Nalbuphine HCl (Nubain) 10 mg IVPUSH Q1H PRN PRN Reason: Pain (severe 7-10) Ondansetron HCl (Zofran) 4 mg IVPUSH Q6H PRN PRN Reason: Nausea/Vomiting Last Admin: 01/26/19 02:15 Dose: 4 mg Sterile Water (Sterile Water For Irrigation) 1,000 ml IRR ASDIRECTED PRN PRN Reason: delivery Last Admin: 01/26/19 04:13 Dose: 1,000 ml Terbutaline Sulfate (Brethine) 0.25 mg SUBCUT ASDIRECTED PRN PRN Reason: Tacysystole - Interaction Infant Disposition, : at Bedside Infant Interaction: Holding Infant Feeding: Breastfed Infant; Nursed Well Support Person: - Recovery Exam Fundal Tone: Firm Fundal Level: 1 Fingerbreadths Below Umbilicus Fundal Placement: Midline Lochia Amount: Scant Lochia Color: Rubra/Red Perineum Description: Intact, Minimal Bruising/Swelling Bladder Status: Voiding Urinary Elimination: Voided - Exam General: Alert, Oriented, No Acute Distress HEENT: Pupils Equal, Pupils Reactive Lungs: Normal Respiratory Effort GI/Abdominal Exam: Soft, Non-Tender, No Distention Extremities: Normal Inspection, Non-Tender, No Pedal Edema Skin: Warm, Dry, Intact Psy/Mental Status: Alert, Normal Affect, Normal Mood - Problem List Review Problem List Initiated/Reviewed/Updated: Yes - My Orders Last 24 Hours: My Active Orders 01/28/19 11:55 Ready for Discharge [RC] PER UNIT ROUTINE - Assessment Assessment:: 23yo PPD2 s/p at 39w4d. Anemia due to acute blood loss s/p transfusion, clinically improving. - Hgb from 10.7 to 6.9, s/p 2u PRBC, Hgb 9.7 this AM, bleeding light, asymptomatic currently - not able to tolerate iron supplements, will take 2 PNVs a day - ambulate - regular diet - motrin PRN for pain - stable for discharge home
[2019-01-28] MEDS: Acetaminophen 500 MG Tab PO PRN (12:20)
== END 2019-01-28 12:55 | disposition home or self-care (01) | DRG 806 ==
LOC: MW.OBCHECK 08:11 → MW.OB 08:28 → MW.OBCHECK 08:28 → MW.OB 11:10 → OBSVTOIN 01-26 04:01 → MW.OB 01-26 10:33
PROVIDERS: ADMIT Obstetrics & Gynecology; ATTEND Obstetrics & Gynecology
PROC: 10E0XZZ Delivery of Products of Conception, External Approach (ICD-10-PCS; principal; 2019-01-26)
PROC: 0KQM0ZZ Repair Perineum Muscle, Open Approach (ICD-10-PCS; 2019-01-26)
PROC: 4A1HXCZ Monitoring of Products of Conception, Cardiac Rate, External Approach (ICD-10-PCS; 2019-01-26)
PROC: 3E0P7VZ Introduction of Hormone into Female Reproductive, Via Natural or Artificial Opening (ICD-10-PCS; 2019-01-26)
PROC: 3E033VJ Introduction of Other Hormone into Peripheral Vein, Percutaneous Approach (ICD-10-PCS; 2019-01-26)
PROC: 30233N1 Transfusion of Nonautologous Red Blood Cells into Peripheral Vein, Percutaneous Approach (ICD-10-PCS; 2019-01-26)
DX: O99.824 Streptococcus B carrier state complicating childbirth (principal); D62 Acute posthemorrhagic anemia; Z37.0 Single live birth; O99.02 Anemia complicating childbirth; Z3A.39 39 weeks gestation of pregnancy; O76 Abnormality in fetal heart rate and rhythm complicating labor and delivery; Z88.1 Allergy status to other antibiotic agents; O69.81X0 Labor and delivery complicated by cord around neck, without compression, not applicable or unspecified; O70.1 Second degree perineal laceration during delivery; Z79.899 Other long term (current) drug therapy
CPT/HCPCS: 36415; 36430; 51702; 59025; 59409; 82803; 85014; 85018; 85027; 86850; 86900; 86901; 86920; 86921; 86922; A9270-GY; J0595; J0690; J2405; J2590; J7120; P9016

== ENCOUNTER 2021-03-16 18:34 | Inpatient (IN) | payer BC ==
[2021-03-16] MEDS: Lactated Ringers 1,000 ML IV SCH ×2 (19:00→20:08)
[2021-03-16] MEDS ORDERED: Nalbuphine 10 MG/1 ML Vial IVPUSH PRN (19:11)
[2021-03-16] MEDS ORDERED: Sodium Chloride 0.9% 10 ML Syringe FLUSH PRN (19:11)
[2021-03-16] MEDS ORDERED: Butorphanol 1 MG/ML SDV IVPUSH PRN (19:11)
[2021-03-16] MEDS ORDERED: Misoprostol 200 MCG Tab PO PRN (19:11)
[2021-03-16] MEDS ORDERED: Methylergonovine 0.2 MG/1 ML Amp IM PRN (19:11)
[2021-03-16] MEDS ORDERED: Sodium Chloride 0.9% 20 ML SDV IV PRN (19:11)
[2021-03-16] MEDS ORDERED: Lidocaine 1% 50 ML MDV INJECT PRN (19:11)
[2021-03-16] MEDS ORDERED: Tranexamic Acid 1,000 MG in Sodium Chloride 0.9% 100 ML IV PRN (19:11)
[2021-03-16] MEDS ORDERED: Water For Irrigation,Sterile 1,000 ML Container IRR PRN (19:11)
[2021-03-16] MEDS ORDERED: Sodium Chloride 0.9% 2.5 ML Syringe FLUSH PRN (19:11)
[2021-03-16] MEDS ORDERED: Carboprost Tromethamine 250 MCG/1 ML Amp IM PRN (19:11)
[2021-03-16] MEDS ORDERED: Oxytocin/0.9 % Sodium Chloride 30 UNIT/500 ML BAG IV SCH (19:15)
[2021-03-16] MEDS ORDERED: Ropivacaine HCl/PF 200 ML ONE (19:49)
[2021-03-16] MEDS ORDERED: ePHEDrine 50 MG/ML SDV IVPUSH PRN ×2 (19:56)
--- NOTE | 2021-03-16 19:58 | PCM.PREANE ---
Preanesthetic Assessment - Anesthesia/Transfusion/Family Hx Anesthesia History: Prior Anesthesia Without Reaction Family History of Anesthesia Reaction: No Transfusion History: No Prior Transfusion(s) - Review of Systems General: No Symptoms Pulmonary: No Symptoms Cardiovascular: No Symptoms Gastrointestinal: No Symptoms Neurological: No Symptoms Other: Reports: None - Physical Assessment NPO Status Date: 03/16/21 NPO Status Time: 15:00 Height: 5 ft 2 in Weight: 169 lb ASA Class: 2 Mental Status: Alert & Oriented x3 Airway Class: Mallampati = 1 Dentition: Reports: Normal Dentition ROM/Head Extension: Full Lungs: Clear to Auscultation, Normal Respiratory Effort Cardiovascular: Regular Rate, Regular Rhythm - Lab Values: Laboratory Last Values WBC 10.90 K/uL (4.0-11.0) 03/16/21 18:55 RBC 4.57 M/uL (4.30-5.90) 03/16/21 18:55 Hgb 11.1 g/dL (12.0-16.0) L 03/16/21 18:55 Hct 35.1 % (36.0-46.0) L 03/16/21 18:55 MCV 76.8 fL (80.0-98.0) L 03/16/21 18:55 MCH 24.3 pg (27.0-32.0) L 03/16/21 18:55 MCHC 31.6 g/dL (31.0-37.0) 03/16/21 18:55 RDW Std Deviation 43.2 fl (28.0-62.0) 03/16/21 18:55 RDW Coeff of [place] 23 % (11.0-15.0) H 03/16/21 18:55 Plt Count 234 K/uL (150-400) 03/16/21 18:55 MPV 10.50 fL (7.40-12.00) 03/16/21 18:55 Nucleated RBC % 0.0 /100WBC 03/16/21 18:55 Nucleated RBCs # 0 K/uL 03/16/21 18:55 - Allergies Allergies/Adverse Reactions: Allergies Allergy/AdvReac Type Severity Reaction Status Date / Time amoxicillin Allergy Hives Verified 12/22/18 18:53 - Acknowledgements Anesthesia Type Planned: Epidural Pt an Appropriate Candidate for the Planned Anesthesia: Yes Alternatives and Risks of Anesthesia Discussed w Pt/Guardian: Yes Pt/Guardian Understands and Agrees with Anesthesia Plan: Yes PreAnesthesia Questionnaire - Past Health History Medical/Surgical History: Denies Medical/Surgical History HEENT History: Reports: Impaired Vision Cardiovascular History: Reports: None Respiratory History: Reports: Asthma Gastrointestinal History: Reports: GERD, Other (See Below) Other Gastrointestinal History: heartburn with Genitourinary History: Reports: None 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 History: 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, Musculoskeletal History: Reports: Fracture Neurological History: Reports: None Psychiatric History: Reports: Anxiety, Depression Endocrine/Metabolic History: Reports: None Hematologic History: Reports: Anemia Immunologic History: Reports: None Oncologic (Cancer) History: Reports: None Dermatologic History: Reports: Eczema - Infectious Disease History Infectious Disease History: Reports: None - Past Surgical History Head Surgeries/Procedures: Reports: None HEENT Surgical History: Reports: Oral Surgery Other HEENT Surgeries/Procedures: [place] teeth extraction GI Surgical History: Reports: None Female Surgical History: Reports: None - HOME MEDS Home Medications: Home Meds Pnv No.103/Folic/Om3s/Fish Oil [ Gummies] 1 tab PO DAILY 07/16/18 [History] - CURRENT (IN HOUSE) MEDS Current Meds: Current Medications Butorphanol Tartrate (Butorphanol 1 Mg/Ml Sdv) 1 mg IVPUSH Q1H PRN PRN Reason: Pain (severe 7-10) Carboprost Tromethamine (Carboprost Tromethamine 250 Mcg/1 Ml Amp) 250 mcg IM ASDIRECTED PRN PRN Reason: Post Hemorrhage Oxytocin/Sodium Chloride (Oxytocin 30 Unit In Ns 0.9% 500 Ml Premix) 30 unit in 500 mls @ 500 mls/hr IV TITRATE JEZ Tranexamic Acid 1,000 mg/ (Sodium Chloride) 110 mls @ 660 mls/hr IV ONETIME PRN PRN Reason: Bleeding Lactated Ringer's (Ringers, Lactated) 1,000 mls @ 150 mls/hr IV ASDIRECTED JEZ Lidocaine HCl (Lidocaine 1% 50 Ml Mdv) 50 ml INJECT ONETIME PRN PRN Reason: Laceration repair Methylergonovine Maleate (Methylergonovine 0.2 Mg/1 Ml Amp) 0.2 mg IM ASDIRECTED PRN PRN Reason: Post Hemorrhage Misoprostol (Misoprostol 200 Mcg Tab) 200 mcg PO ONETIME PRN PRN Reason: Post Hemorrhage Nalbuphine HCl (Nalbuphine 10 Mg/1 Ml Vial) 10 mg IVPUSH Q1H PRN PRN Reason: Pain (severe 7-10) Sodium Chloride (Sodium Chloride 0.9% 10 Ml Syringe) 10 ml FLUSH ASDIRECTED PRN PRN Reason: Keep Vein Open Sodium Chloride (Sodium Chloride 0.9% 2.5 Ml Syringe) 2.5 ml FLUSH ASDIRECTED PRN PRN Reason: Keep Vein Open Sodium Chloride (Sodium Chloride 0.9% 20 Ml Sdv) 10 ml IV ASDIRECTED PRN PRN Reason: IV Use Sterile Water (Water For Irrigation,Sterile 1,000 Ml Container) 1,000 ml IRR ASDIRECTED PRN PRN Reason: delivery Discontinued Medications Ropivacaine (Naropin 0.2%) Confirm Administered Dose 200 mls @ as directed .ROUTE .[facility] ONE Stop: 03/16/21 19:50
[2021-03-16] MEDS ORDERED: Ropivacaine/PF 400 MG/200 ML PCA EPIDUR SCH (20:00)
--- NOTE | 2021-03-16 20:00 | PCM.POSTAN ---
POST ANESTHESIA ASSESSMENT - MENTAL STATUS Mental Status: Alert, Oriented - RESPIRATORY Respiratory Status: Respiratory Rate WNL, Airway Patent, O2 Saturation Stable - CARDIOVASCULAR CV Status: Pulse Rate WNL, Blood Pressure Stable - GASTROINTESTINAL GI Status: No Symptoms - POST OP HYDRATION Hydration Status: Adequate & Stable
--- NOTE | 2021-03-16 20:00 | PCM.SN.2 ---
- Pre-Procedure Checklist Attending Provider Aware: Yes Chart Reviewed: Yes Consent Signed: Yes Labs Reviewed: Yes VS/FHR Reviewed: Yes Patient Identification Confirmation Method: Reports: Chart Visual, ID Band Visual, Verbal Patient Pt an Appropriate Candidate for the Planned Anesthesia: Yes Alternatives and Risks of Anesthesia Discussed w Pt/Guardian: Yes - Procedure Procedure Start Date: 03/16/21 Procedure Start Time: 19:[address]: Reports: Blood Pressure, Heart Rate, SPO2 Functional IV: Yes Safety Measures: Reports: Patient Identified, Procedure Verified, Site Verified, Procedure Time Out Patient Position: Reports: Sitting Prep: Reports: Alcohol x3, Betadine x3 Local Anesthetic: Reports: Intradermal Wheal w Lidocaine 1% Regional Placement Level: Reports: L2-3 Needle: Reports: 17 g Touhy Approach: Reports: Midline Technique: Reports: MAGNO Glass Syringe Parasthesia: Reports: None Fluid Obtained: Reports: None Test Dose Medication: Reports: Lidocaine 1.5% w Epinephrine 1:200,000 Test Dose Response: Reports: Negative Continuous Infusion Start Time: 19:55 Continuous Infusion Medication: 0.2% Naropin Continuous Infusion Rate: 15 Continuous Infusion PCS Bolus Option: 4 Continuous Infusion Lockout Dose (cc/hr): 20 Patient Position Post Placement: Reports: [place]/MARTIN Post-procedure Pain Level: 3 VS and FHR Monitored in Unit Post Placement: Yes Procedure End Date: 03/16/21 Procedure End Time: 20:40
--- NOTE | 2021-03-16 20:10 | PCM.LDHP ---
L&D History of Present Illness - General Date of Service: 03/16/21 Admit Problem/Dx: Patient Status Order with Admit Dx/Problem 03/16/21 19:11 Patient Status [ADT] Routine Admission Diagnosis/Problem Admission Diagnosis/Problem Source of Information: Patient History Limitations: Reports: No Limitations - History of Present Illness Introduction:: 25 year old female at 39w1d (EDC 03/22/2021 by LMP consistent with 8w5d US) presents to labor and delivery with spontaneous onset of labor. States that she has been laura irregularly all day until 1700 when her contractions became more frequent and intense. has been complicated by a choroid plexus cyst which has resolved and anemia. Reports good movement. Denies leaking fluid or vaginal bleeding. - Related Data Allergies/Adverse Reactions: Allergies Allergy/AdvReac Type Severity Reaction Status Date / Time amoxicillin Allergy Hives Verified 12/22/18 18:53 Home Medications: Home Meds Pnv No.103/Folic/Om3s/Fish Oil [ Gummies] 1 tab PO DAILY 07/16/18 [Hi story] Past Medical History - Past Health History Medical/Surgical History: Denies Medical/Surgical History HEENT History: Reports: Impaired Vision Cardiovascular History: Reports: None Respiratory History: Reports: Asthma Gastrointestinal History: Reports: GERD, Other (See Below) Other Gastrointestinal History: heartburn with Genitourinary History: Reports: None 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, Musculoskeletal History: Reports: Fracture Neurological History: Reports: None Psychiatric History: Reports: Anxiety, Depression Endocrine/Metabolic History: Reports: None Hematologic History: Reports: Anemia Immunologic History: Reports: None Oncologic (Cancer) History: Reports: None Dermatologic History: Reports: Eczema - Infectious Disease History Infectious Disease History: Reports: None - Past Surgical History Head Surgeries/Procedures: Reports: None HEENT Surgical History: Reports: Oral Surgery Other HEENT Surgeries/Procedures: Corrigan teeth extraction GI Surgical History: Reports: None Female Surgical History: Reports: None Social & Family History - Family History Family Medical History: No Pertinent Family History HEENT: Reports: Impaired Vision Cardiac: Reports: Cardiomyopathy, Hypertension, Syncope Respiratory: Reports: Asthma GI: Reports: None : Reports: None OBGYN: Reports: Endometriosis, Musculoskeletal: Reports: None Neurological: Reports: Alzheimers Disease Psychiatric: Reports: None Endocrine/Metabolic: Reports: Diabetes, Gestational, Diabetes, type II Hematologic: Reports: None Immunologic: Reports: None Dermatologic: Reports: None Oncologic: Reports: Breast, Leukemia, Skin - Caffeine Use Caffeine Use: Reports: Soda H&P Review of Systems - Review of Systems: Review Of Systems: See Below General: Reports: No Symptoms HEENT: Reports: No Symptoms Pulmonary: Reports: No Symptoms Cardiovascular: Reports: No Symptoms Gastrointestinal: Reports: Abdominal Pain Genitourinary: Reports: No Symptoms Musculoskeletal: Reports: Back Pain Skin: Reports: No Symptoms Psychiatric: Reports: No Symptoms Neurological: Reports: No Symptoms Hematologic/Lymphatic: Reports: No Symptoms Immunologic: Reports: No Symptoms L&D Exam - Exam Exam: See Below - Vital Signs Weight: 169 lb - OB Specific Contraction Intensity: Moderate Movement: Active Heart Tones: Present Heart Tones per Min: 130 Heart Rate (FHR) Variability: Moderate (6-25 bpm) Presentation: Vertex Estimated Weight: 3500 grams - Victor Score Victor Score Cervix Position: Anterior Victor Score Consistency: Soft Victor Score Effacement: >80% Victor Score Dilation: 3-4 cm Victor Score 's Station: -1 ,0 Victor Score Total: 11 - Exam General: Alert Lungs: Normal Respiratory Effort Cardiovascular: Regular Rate GI/Abdominal Exam: Soft, Non-Tender Back Exam: Normal Inspection, Full Range of Motion Extremities: Normal Range of Motion, Non-Tender, No Pedal Edema Skin: Warm, Dry, Intact Psychiatric: Normal Mood - Patient Data Lab Results Last 24 hrs: Laboratory Results - last 24 hr 03/16/21 Range/Units 18:55 WBC 10.90 (4.0-11.0) K/uL RBC 4.57 (4.30-5.90) M/uL Hgb 11.1 L (12.0-16.0) g/dL Hct 35.1 L (36.0-46.0) % MCV 76.8 L (80.0-98.0) fL MCH 24.3 L (27.0-32.0) pg MCHC 31.6 (31.0-37.0) g/dL RDW Std Deviation 43.2 (28.0-62.0) fl RDW Coeff of Lawrence 23 H (11.0-15.0) % Plt Count 234 (150-400) K/uL MPV 10.50 (7.40-12.00) fL Nucleated RBC % 0.0 /100WBC Nucleated RBCs # 0 K/uL Result Diagrams: 03/16/21 18:55 Problem List Initiated/Reviewed/Updated: Yes Orders Last 24hrs: Active Orders 24 hr Category Date Time Status Patient Status [ADT] Routine ADT 03/16/21 19:11 Active Communication Order [RC] PRN Care 03/16/21 19:56 Active Heart Tones [RC] CONTINUOUS Care 03/16/21 19:11 Active Non Stress Test [RC] PER UNIT ROUTINE Care 03/16/21 19:11 Active May Shower [RC] ASDIRECTED Care 03/16/21 19:11 Active Notify Provider [RC] PRN Care 03/16/21 19:11 Active Up ad Eva [RC] ASDIRECTED Care 03/16/21 19:11 Active Vaginal Exam [RC] PRN Care 03/16/21 19:11 Active Vital Signs [RC] PER UNIT ROUTINE Care 03/16/21 19:11 Active CORONAVIRUS COVID-19 [facility] [MOLEC] Routine Lab 03/16/21 19:00 Received RPR (SYPHILIS SERO) W/ RFLX [REF] Routine Lab 03/16/21 18:55 Received TYPE AND SCREEN [BBK] Routine Lab 03/16/21 18:55 Received Butorphanol [Stadol] Med 03/16/21 19:11 Active 1 mg IVPUSH Q1H PRN Carboprost Tromethamine [Hemabate DS] Med 03/16/21 19:11 Active 250 mcg IM ASDIRECTED PRN Lactated Ringers [Ringers, Lactated] 1,000 ml Med 03/16/21 19:15 Active IV ASDIRECTED Lidocaine 1% [Xylocaine 1%] Med 03/16/21 19:11 Active 50 ml INJECT ONETIME PRN Methylergonovine [Methergine] Med 03/16/21 19:11 Active 0.2 mg IM ASDIRECTED PRN Nalbuphine [Nubain] Med 03/16/21 19:11 Active 10 mg IVPUSH Q1H PRN Oxytocin/0.9 % Sodium Chloride [Oxytocin 30 Unit in NS Med 03/16/21 19:15 Active 0.9% 500 ML Premix] 30 unit in 500 ml IV TITRATE Phenylephrine HCl In 0.9% NaCl [Phenylephrine 1 MG/10 Med 03/16/21 19:56 Order ed ML-NS] 0.1 mg IVPUSH Q1M PRN Ropivacaine HCl/PF [Ropivacaine 0.2% BOBBIN WINDER TENDER 400 MG in 200 Med 03/16/21 20:00 Ordered ML] 400 mg EPIDUR ASDIRECTED Sodium Chloride 0.9% [Normal Saline] Med 03/16/21 19:11 Active 10 ml IV ASDIRECTED PRN Sodium Chloride 0.9% [Saline Flush] Med 03/16/21 19:11 Active 10 ml FLUSH ASDIRECTED PRN Sodium Chloride 0.9% [Saline Flush] Med 03/16/21 19:11 Active 2.5 ml FLUSH ASDIRECTED PRN Tranexamic Acid [Cyklokapron] 1,000 mg Med 03/16/21 19:11 Active Sodium Chloride 0.9% [Normal Saline] 100 ml IV ONETIME Water For Irrigation,Sterile [Sterile Water for Med 03/16/21 19:11 Active Irrigation] 1,000 ml IRR ASDIRECTED PRN ePHEDrine [ePHEDrine sulfate] Med 03/16/21 19:56 Ordered 10 mg IVPUSH Q1M PRN ePHEDrine [ePHEDrine sulfate] Med 03/16/21 19:56 Ordered 10 mg IVPUSH Q5M PRN miSOPROStoL [Cytotec] Med 03/16/21 19:11 Active 200 mcg PO ONETIME PRN Scalp Electrode [WOMSER] Per Unit Routine Oth 03/16/21 19:11 Ordered Peripheral IV Insertion Adult [OM.PC] Routine Oth 03/16/21 19:11 Ordered Resuscitation Status Routine Resus Stat 03/16/21 19:11 Ordered Medication Orders Butorphanol Tartrate (Butorphanol 1 Mg/Ml Sdv) 1 mg IVPUSH Q1H PRN PRN Reason: Pain (severe 7-10) Carboprost Tromethamine (Carboprost Tromethamine 250 Mcg/1 Ml Amp) 250 mcg IM ASDIRECTED PRN PRN Reason: Post Hemorrhage Ephedrine Sulfate (Ephedrine 50 Mg/Ml Sdv) 10 mg IVPUSH Q1M PRN PRN Reason: Hypotension Ephedrine Sulfate (Ephedrine 50 Mg/Ml Sdv) 10 mg IVPUSH Q5M PRN PRN Reason: Hypotension Oxytocin/Sodium Chloride (Oxytocin 30 Unit In Ns 0.9% 500 Ml Premix) 30 unit in 500 mls @ 500 mls/hr IV TITRATE [facility] Tranexamic Acid 1,000 mg/ (Sodium Chloride) 110 mls @ 660 mls/hr IV ONETIME PRN PRN Reason: Bleeding Lactated Ringer's (Ringers, Lactated) 1,000 mls @ 150 mls/hr IV ASDIRECTED [facility] Lidocaine HCl (Lidocaine 1% 50 Ml Mdv) 50 ml INJECT ONETIME PRN PRN Reason: Laceration repair Methylergonovine Maleate (Methylergonovine 0.2 Mg/1 Ml Amp) 0.2 mg IM DIRECTED PRN PRN Reason: Post Hemorrhage Miscellaneous Medication (Phenylephrine Hcl In 0.9% Nacl 1 Mg/10 Ml Syringe) 0.1 mg IVPUSH Q1M PRN PRN Reason: Hypotension Misoprostol (Misoprostol 200 Mcg Tab) 200 mcg PO ONETIME PRN PRN Reason: Post Hemorrhage Nalbuphine HCl (Nalbuphine 10 Mg/1 Ml Vial) 10 mg IVPUSH Q1H PRN PRN Reason: Pain (severe 7-10) Ropivacaine (Ropivacaine/Pf 400 Mg/200 Ml Plant Technician) 400 mg EPIDUR ASDIRECTED [facility] Sodium Chloride (Sodium Chloride 0.9% 10 Ml Syringe) 10 ml FLUSH ASDIRECTED PRN PRN Reason: Keep Vein Open Sodium Chloride (Sodium Chloride 0.9% 2.5 Ml Syringe) 2.5 ml FLUSH ASDIRECTED PRN PRN Reason: Keep Vein Open Sodium Chloride (Sodium Chloride 0.9% 20 Ml Sdv) 10 ml IV ASDIRECTED PRN PRN Reason: IV Use Sterile Water (Water For Irrigation,Sterile 1,000 Ml Container) 1,000 ml IRR ASDIRECTED PRN PRN Reason: delivery Assessment/Plan Comment:: 25 year old at 39w1d (EDC 03/22/2021 by LMP c/w 8w5d US) in spontaneous labor * Admit to labor and delivery * Rh positive, rubella immune, GBS negative * Hx of anemia- s/p IV iron transfusions. Hgb 11.1 today. * Epidural PRN pain management Dispo: stable. Continue with expectant management of labor at this time.
[2021-03-16] MEDS ORDERED: Ondansetron 4 MG/2 ML SDV ONE (21:05)
[2021-03-16] MEDS ORDERED: Ondansetron 4 MG/2 ML SDV IVPUSH PRN (21:09)
[2021-03-16] MEDS ORDERED: oxyCODONE 5 MG Tab PO PRN (22:42)
[2021-03-16] MEDS ORDERED: Docusate Sodium 100 MG Cap PO PRN (22:42)
[2021-03-16] MEDS ORDERED: Witch Hazel Medicated Pads 40/Jar TOP PRN (22:42)
[2021-03-16] MEDS ORDERED: Lanolin 100% Cream 7 GM Tube TOP PRN (22:42)
[2021-03-16] MEDS ORDERED: Ibuprofen 400 MG Tab PO PRN (22:42)
[2021-03-16] MEDS ORDERED: Bisacodyl 10 MG Supp RECTAL PRN (22:42)
[2021-03-16] MEDS ORDERED: Acetaminophen 500 MG Tab PO PRN (22:42)
[2021-03-16] MEDS ORDERED: Benzocaine/Menthol 20%-0.5% Spray 78 GM Cannister TOP PRN (22:42)
--- NOTE | 2021-03-16 22:51 | PCM.DEL ---
L & D Note - General Info Date of Service: 03/16/21 Mother's Due Date: 03/22/21 - Delivery Note Labor: Augmented by ARM Delivery Outcome: Livebirth Delivery Method: Spontaneous Vaginal Delivery-Single Infant Delivery Mode: Spontaneous Presentation: Vertex Nuchal Cord: None Anesthesia Type: None Amniotic Fluid Description: Clear Episiotomy Type: None Laceration: 2nd Degree Suture type: Vicryl Suture size: 2-0 Placenta: Intact, Spontaneous Cord: 3 Vessels Estimated Blood Loss: 200 Resuscitation Needed: No [place]: Bulb Syringe, Stimulated Provider: Maggie Dumont Score 1 min: 7 Score 5 min: 9 Delivery Comments (Free Text/Narrative):: Dictation #[id number] - General Info Date of Service: 03/16/21 Admission Dx/Problem (Free Text): Patient Status Order with Admit Dx/Problem 03/16/21 19:11 Patient Status [ADT] Routine Admission Diagnosis/Problem Admission Diagnosis/Problem - Patient Data Weight - Most Recent: 169 lb Lab Results Last 24 Hours: Laboratory Results - last 24 hr 03/16/21 03/16/21 03/16/21 Range/Units 18:55 18:55 19:00 WBC 10.90 (4.0-11.0) K/uL RBC 4.57 (4.30-5.90) M/uL Hgb 11.1 L (12.0-16.0) g/dL Hct 35.1 L (36.0-46.0) % MCV 76.8 L (80.0-98.0) fL MCH 24.3 L (27.0-32.0) pg MCHC 31.6 (31.0-37.0) g/dL RDW Std Deviation 43.2 (28.0-62.0) fl RDW Coeff of Lawrence 23 H (11.0-15.0) % Plt Count 234 (150-400) K/uL MPV 10.50 (7.40-12.00) fL Nucleated RBC % 0.0 /100WBC Nucleated RBCs # 0 K/uL Cord ABG pH (7.18-7.38) Cord ABG Base Excess (-10--2) Cord VBG pH (7.25-7.45) Cord VBG Base Excess (-10--2) SARS-CoV-2 RNA ([facility]) NEGATIVE (NEGATIVE) Blood Type AB POSITIVE Antibody Screen NEGATIVE 03/16/21 Range/Units 21:28 WBC (4.0-11.0) K/uL RBC (4.30-5.90) M/uL Hgb (12.0-16.0) g/dL Hct (36.0-46.0) % MCV (80.0-98.0) fL MCH (27.0-32.0) pg MCHC (31.0-37.0) g/dL RDW Std Deviation (28.0-62.0) fl RDW Coeff of Lawrence (11.0-15.0) % Plt Count (150-400) K/uL MPV (7.40-12.00) fL Nucleated RBC % /100WBC Nucleated RBCs # K/uL Cord ABG pH 7.356 (7.18-7.38) Cord ABG Base Excess -1 H (-10--2) Cord VBG pH 7.355 (7.25-7.45) Cord VBG Base Excess -1 H (-10--2) SARS-CoV-2 RNA ([facility]) (NEGATIVE) Blood Type Antibody Screen Med Orders - Current: Current Medications Butorphanol Tartrate (Butorphanol 1 Mg/Ml Sdv) 1 mg IVPUSH Q1H PRN PRN Reason: Pain (severe 7-10) Carboprost Tromethamine (Carboprost Tromethamine 250 Mcg/1 Ml Amp) 250 mcg IM ASDIRECTED PRN PRN Reason: Post Hemorrhage Ephedrine Sulfate (Ephedrine 50 Mg/Ml Sdv) 10 mg IVPUSH Q1M PRN PRN Reason: Hypotension Ephedrine Sulfate (Ephedrine 50 Mg/Ml Sdv) 10 mg IVPUSH Q5M PRN PRN Reason: Hypotension Oxytocin/Sodium Chloride (Oxytocin 30 Unit In Ns 0.9% 500 Ml Premix) 30 unit in 500 mls @ 500 mls/hr IV TITRATE [facility] Tranexamic Acid 1,000 mg/ (Sodium Chloride) 110 mls @ 660 mls/hr IV ONETIME PRN PRN Reason: Bleeding Lactated Ringer's (Ringers, Lactated) 1,000 mls @ 150 mls/hr IV ASDIRECTED JEZ Last Admin: 03/16/21 20:08 Dose: 150 mls/hr Documented by: Lidocaine HCl (Lidocaine 1% 50 Ml Mdv) 50 ml INJECT ONETIME PRN PRN Reason: Laceration repair Methylergonovine Maleate (Methylergonovine 0.2 Mg/1 Ml Amp) 0.2 mg IM ASDIRECTED PRN PRN Reason: Post Hemorrhage Miscellaneous Medication (Phenylephrine Hcl In 0.9% Nacl 1 Mg/10 Ml Syringe) 0.1 mg IVPUSH Q1M PRN PRN Reason: Hypotension Misoprostol (Misoprostol 200 Mcg Tab) 200 mcg PO ONETIME PRN PRN Reason: Post Hemorrhage Nalbuphine HCl (Nalbuphine 10 Mg/1 Ml Vial) 10 mg IVPUSH Q1H PRN PRN Reason: Pain (severe 7-10) Ondansetron HCl (Ondansetron 4 Mg/2 Ml Sdv) 4 mg IVPUSH Q6H PRN PRN Reason: Nausea/Vomiting Last Admin: 03/16/21 21:10 Dose: 4 mg Documented by: Ropivacaine (Ropivacaine/Pf 400 Mg/200 Ml Assembly Riveter) 400 mg EPIDUR ASDIRECTED [facility] Sodium Chloride (Sodium Chloride 0.9% 10 Ml Syringe) 10 ml FLUSH ASDIRECTED PRN PRN Reason: Keep Vein Open Sodium Chloride (Sodium Chloride 0.9% 2.5 Ml Syringe) 2.5 ml FLUSH ASDIRECTED PRN PRN Reason: Keep Vein Open Sodium Chloride (Sodium Chloride 0.9% 20 Ml Sdv) 10 ml IV ASDIRECTED PRN PRN Reason: IV Use Sterile Water (Water For Irrigation,Sterile 1,000 Ml Container) 1,000 ml IRR ASDIRECTED PRN PRN Reason: delivery Discontinued Medications Ropivacaine (Naropin 0.2%) Confirm Administered Dose 200 mls @ as directed .ROUTE .STK-MED ONE Stop: 03/16/21 19:50 Last Admin: 03/16/21 21:12 Dose: Not Given Documented by: Ondansetron HCl (Ondansetron 4 Mg/2 Ml Sdv) Confirm Administered Dose 4 mg .ROUTE .STK-MED ONE Stop: 03/16/21 21:06 Last Admin: 03/16/21 21:13 Dose: Not Given Documented by: - Problem List Review Problem List Initiated/Reviewed/Updated: Yes - My Orders Last 24 Hours: My Active Orders 11/08/21 18:55 RPR (SYPHILIS SERO) W/ RFLX [REF] Routine 03/16/21 19:11 Patient Status [ADT] Routine Heart Tones [RC] CONTINUOUS Non Stress Test [RC] PER UNIT ROUTINE May Shower [RC] ASDIRECTED Notify Provider [RC] PRN Up ad Eva [RC] ASDIRECTED Vaginal Exam [RC] PRN Vital Signs [RC] PER UNIT ROUTINE Butorphanol [Stadol] 1 mg IVPUSH Q1H PRN Carboprost Tromethamine [Hemabate DS] 250 mcg IM ASDIRECTED PRN Lidocaine 1% [Xylocaine 1%] 50 ml INJECT ONETIME PRN Methylergonovine [Methergine] 0.2 mg IM ASDIRECTED PRN Nalbuphine [Nubain] 10 mg IVPUSH Q1H PRN Sodium Chloride 0.9% [Normal Saline] 10 ml IV ASDIRECTED PRN Sodium Chloride 0.9% [Saline Flush] 10 ml FLUSH ASDIRECTED PRN Sodium Chloride 0.9% [Saline Flush] 2.5 ml FLUSH ASDIRECTED PRN Tranexamic Acid [Cyklokapron] 1,000 mg Sodium Chloride 0.9% [Normal Saline] 100 ml IV ONETIME Water For Irrigation,Sterile [Sterile Water for Irrigation] 1,000 ml IRR ASDIRECTED PRN miSOPROStoL [Cytotec] 200 mcg PO ONETIME PRN Scalp Electrode [WOMSER] Per Unit Routine Peripheral IV Insertion Adult [OM.PC] Routine Resuscitation Status Routine 03/16/21 19:15 Lactated Ringers [Ringers, Lactated] 1,000 ml IV ASDIRECTED Oxytocin/0.9 % Sodium Chloride [Oxytocin 30 Unit in NS 0.9% 500 ML Premix] 30 unit in 500 ml IV TITRATE 03/16/21 21:09 Ondansetron [Zofran] 4 mg IVPUSH Q6H PRN 03/16/21 22:42 Acetaminophen [Tylenol Extra Strength] 1,000 mg PO Q4H PRN Acetaminophen [Tylenol Extra Strength] 500 mg PO Q4H PRN Benzocaine/Menthol [Dermoplast Pain Relief 20%-0.5% [place]] 78 gm TOP ASDIRECTED PRN Docusate Sodium [Colace] 100 mg PO Q12H PRN Ibuprofen [Motrin] 400 mg PO Q4H PRN Ibuprofen [Motrin] 800 mg PO Q6H PRN Lanolin [Lansinoh HPA] See Dose Instructions TOP ASDIRECTED PRN bisacodyL [Dulcolax] 10 mg RECTAL ONETIME PRN oxyCODONE 5 mg PO Q2H PRN witch Tatiana [Tucks] 1 pad TOP ASDIRECTED PRN 03/16/21 22:43 Patient Status [ADT] Routine May Shower [RC] ASDIRECTED Up ad Eva [RC] ASDIRECTED Vital Signs [RC] PER UNIT ROUTINE Assess Lochia [WOMSER] Per Unit Routine Assess Uterine Involution [WOMSER] Per Unit Routine Peripheral IV Discontinue [OM.PC] Routine 03/17/21 05:11 HEMOGLOBIN/HEMATOCRIT,HH [HEME] Timed - Assessment Assessment:: 25 year old s/p at 39w1d - Plan Plan:: Routine cares * Rh positive, rubella immune, GBS negative * Hx of anemia- s/p IV iron transfusions. Hgb 11.1 prior to delivery * PO pain medication ordered PRN * Regular diet as tolerated * Encourage ambulation and fluid intake when able * Desires to breastfeed, nursing assistance PRN Dispo: stable. Admit to floor and anticipate routine course.
--- NOTE | 2021-03-16 22:57 | PCM48HPAN ---
Post Anesthesia Note - EVALUATION WITHIN 48HRS OF ANESTHETIC Vital Signs in Normal Range: Yes Patient Participated in Evaluation: Yes Respiratory Function Stable: Yes Airway Patent: Yes Cardiovascular Function Stable: Yes Hydration Status Stable: Yes Pain Control Satisfactory: Yes Nausea and Vomiting Control Satisfactory: Yes Mental Status Recovered: Yes
--- NOTE | 2021-03-16 23:26 | OR ---
SURGEON: ANNIA ALEX MD DATE OF PROCEDURE: 03/16/2021 PREOPERATIVE DIAGNOSIS: Bourne intrauterine gestation at 39 weeks and 1 day. POSTOPERATIVE DIAGNOSIS: Bourne intrauterine gestation at 39 weeks and 1 day. PROCEDURES PERFORMED: 1. Spontaneous vaginal delivery. 2. Repair of second-degree laceration. PRIMARY SURGEON: Annia Alex MD ANESTHESIOLOGIST: Dr. Royer Melissa. ANESTHESIA: Epidural ESTIMATED BLOOD LOSS: 200 mL. FINDINGS: Viable female . scores of 7 and 9. weight not yet available. Clear amniotic fluid. INDICATION FOR THE PROCEDURE: Patient is a 25-year-old, 2, para 1, who presented to Labor and Delivery at 39 weeks and 1 day gestation with spontaneous onset of labor. Upon arrival, she was noted to be 4 cm dilated, 90% effaced with a bulging bag and received an epidural shortly thereafter. The patient was comfortable. Artificial rupture of membranes was then performed. A large amount of clear fluid. Labor then quickly progressed and the patient was noted to be completely dilated shortly after 2100. I was called to the room at that time for delivery. DESCRIPTION OF PROCEDURE: The patient pushed over two contractions with good descent. head delivered in occiput anterior position, restituted LOT. Anterior shoulder delivered easily. No nuchal cord was noted. Posterior shoulder and remaining body were then delivered. The baby was then placed on the maternal abdomen and evaluated by awaiting nursing staff. The baby was pink, crying vigorously, and moved all extremities immediately after the delivery. After approximately 2 minutes, the umbilical cord was no longer pulsating and was clamped and cut. Arterial, venous, and cord blood gases were then obtained. The placenta was then expressed and fundal massage was then performed. At this time, an approximately 4 cm piece of retained placenta was then extracted during bimanual uterine exploration. Fundus remained firm and below the umbilicus. Perineal inspection was then performed and a second-degree perineal laceration was noted. This was repaired in the usual fashion with 2-0 Vicryl. Hemostasis was then confirmed. The patient tolerated the procedure well and is recovering in room with infant. KARISHMA / LYNDSAY /[id number]
[2021-03-17] MEDS: Ibuprofen 800 MG Tab PO PRN ×3 (03:26→19:28)
[2021-03-17] MEDS: Acetaminophen 500 MG Tab PO PRN ×3 (08:09→21:40)
--- NOTE | 2021-03-17 08:55 | PCM.PNPP ---
- General Info Date of Service: 03/17/21 Functional Status: Reports: Pain Controlled, Tolerating Diet, Ambulating, Urinating - Review of Systems General: Reports: Fatigue. Denies: Fever, Weakness Pulmonary: Denies: Shortness of Breath Cardiovascular: Denies: Chest Pain, Palpitations, Lightheadedness Gastrointestinal: Denies: Abdominal Pain, Nausea, Vomiting Genitourinary: Denies: Flank Pain Musculoskeletal: Reports: No Symptoms Skin: Reports: No Symptoms Neurological: Reports: No Symptoms Psychiatric: Reports: No Symptoms - General Info Date of Service: 03/17/21 - Patient Data Vital Signs - Most Recent: Last Vital Signs Temp 36.6 C 03/17/21 08:16 Pulse 65 03/17/21 08:16 Resp 14 03/17/21 08:16 BP 126/92 H 03/17/21 08:16 Pulse Ox 98 03/17/21 08:16 Weight - Most Recent: 76.657 kg Lab Results - Last 24 Hours: Laboratory Results - last 24 hr 03/16/21 03/16/21 03/16/21 Range/Units 18:55 18:55 19:00 WBC 10.90 (4.0-11.0) K/uL RBC 4.57 (4.30-5.90) M/uL Hgb 11.1 L (12.0-16.0) g/dL Hct 35.1 L (36.0-46.0) % MCV 76.8 L (80.0-98.0) fL MCH 24.3 L (27.0-32.0) pg MCHC 31.6 (31.0-37.0) g/dL RDW Std Deviation 43.2 (28.0-62.0) fl RDW Coeff of [place] 23 H (11.0-15.0) % Plt Count 234 (150-400) K/uL MPV 10.50 (7.40-12.00) fL Nucleated RBC % 0.0 /100WBC Nucleated RBCs # 0 K/uL Cord ABG pH (7.18-7.38) Cord ABG Base Excess (-10--2) Cord VBG pH (7.25-7.45) Cord VBG Base Excess (-10--2) SARS-CoV-2 RNA ([facility]) NEGATIVE (NEGATIVE) Blood Type AB POSITIVE Antibody Screen NEGATIVE 03/16/21 03/17/21 Range/Units 21:28 05:30 WBC (4.0-11.0) K/uL RBC (4.30-5.90) M/uL Hgb 10.3 L (12.0-16.0) g/dL Hct 32.9 L (36.0-46.0) % MCV (80.0-98.0) fL MCH (27.0-32.0) pg MCHC (31.0-37.0) g/dL RDW Std Deviation (28.0-62.0) fl RDW Coeff of [place] (11.0-15.0) % Plt Count (150-400) K/uL MPV (7.40-12.00) fL Nucleated RBC % /100WBC Nucleated RBCs # K/uL Cord ABG pH 7.356 (7.18-7.38) Cord ABG Base Excess -1 H (-10--2) Cord VBG pH 7.355 (7.25-7.45) Cord VBG Base Excess -1 H (-10--2) SARS-CoV-2 RNA ([facility]) (NEGATIVE) Blood Type Antibody Screen Med Orders - Current: Current Medications Acetaminophen (Acetaminophen 500 Mg Tab) 500 mg PO Q4H PRN PRN Reason: Pain (mild 1-3) Acetaminophen (Acetaminophen 500 Mg Tab) 1,000 mg PO Q4H PRN PRN Reason: Pain (mild 1-3) Last Admin: 03/17/21 08:09 Dose: 1,000 mg Documented by: Benzocaine/Menthol (Benzocaine/Menthol 20%-0.5% [place] 78 Gm Cannister) 78 gm TOP ASDIRECTED PRN PRN Reason: Perineal Comfort Measure Last Admin: 03/17/21 00:53 Dose: 1 canister Documented by: Bisacodyl (Bisacodyl 10 Mg Supp) 10 mg RECTAL ONETIME PRN PRN Reason: Constipation Butorphanol Tartrate (Butorphanol 1 Mg/Ml Sdv) 1 mg IVPUSH Q1H PRN PRN Reason: Pain (severe 7-10) Carboprost Tromethamine (Carboprost Tromethamine 250 Mcg/1 Ml Amp) 250 mcg IM ASDIRECTED PRN PRN Reason: Post Hemorrhage Docusate Sodium (Docusate Sodium 100 Mg Cap) 100 mg PO Q12H PRN PRN Reason: Constipation Emollient Ointment (Lanolin 100% Cream 7 Gm Tube) 0 gm TOP ASDIRECTED PRN PRN Reason: Sore Nipples Last Admin: 03/17/21 08:08 Dose: 1 tube Documented by: Ephedrine Sulfate (Ephedrine 50 Mg/Ml Sdv) 10 mg IVPUSH Q1M PRN PRN Reason: Hypotension Ephedrine Sulfate (Ephedrine 50 Mg/Ml Sdv) 10 mg IVPUSH Q5M PRN PRN Reason: Hypotension Oxytocin/Sodium Chloride (Oxytocin 30 Unit In Ns 0.9% 500 Ml Premix) 30 unit in 500 mls @ 500 mls/hr IV TITRATE [facility] Tranexamic Acid 1,000 mg/ (Sodium Chloride) 110 mls @ 660 mls/hr IV ONETIME PRN PRN Reason: Bleeding Lactated Ringer's (Ringers, Lactated) 1,000 mls @ 150 mls/hr IV ASDIRECTED [facility] Last Admin: 03/16/21 20:08 Dose: 150 mls/hr Documented by: Ibuprofen (Ibuprofen 400 Mg Tab) 400 mg PO Q4H PRN PRN Reason: Pain (mild 1-3) Ibuprofen (Ibuprofen 800 Mg Tab) 800 mg PO Q6H PRN PRN Reason: Cramping Last Admin: 03/17/21 03:26 Dose: 800 mg Documented by: Lidocaine HCl (Lidocaine 1% 50 Ml Mdv) 50 ml INJECT ONETIME PRN PRN Reason: Laceration repair Methylergonovine Maleate (Methylergonovine 0.2 Mg/1 Ml Amp) 0.2 mg IM ASDIRECTED PRN PRN Reason: Post Hemorrhage Miscellaneous Medication (Phenylephrine Hcl In 0.9% Nacl 1 Mg/10 Ml Syringe) 0.1 mg IVPUSH Q1M PRN PRN Reason: Hypotension Misoprostol (Misoprostol 200 Mcg Tab) 200 mcg PO ONETIME PRN PRN Reason: Post Hemorrhage Nalbuphine HCl (Nalbuphine 10 Mg/1 Ml Vial) 10 mg IVPUSH Q1H PRN PRN Reason: Pain (severe 7-10) Ondansetron HCl (Ondansetron 4 Mg/2 Ml Sdv) 4 mg IVPUSH Q6H PRN PRN Reason: Nausea/Vomiting Last Admin: 03/16/21 21:10 Dose: 4 mg Documented by: Oxycodone HCl (Oxycodone 5 Mg Tab) 5 mg PO Q2H PRN PRN Reason: Pain (severe 7-10) Ropivacaine (Ropivacaine/Pf 400 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[employer]) 400 mg EPIDUR ASDIRECTED [facility] Sodium Chloride (Sodium Chloride 0.9% 10 Ml Syringe) 10 ml FLUSH ASDIRECTED PRN PRN Reason: Keep Vein Open Sodium Chloride (Sodium Chloride 0.9% 2.5 Ml Syringe) 2.5 ml FLUSH ASDIRECTED PRN PRN Reason: Keep Vein Open Sodium Chloride (Sodium Chloride 0.9% 20 Ml Sdv) 10 ml IV ASDIRECTED PRN PRN Reason: IV Use Sterile Water (Water For Irrigation,Sterile 1,000 Ml Container) 1,000 ml IRR ASDIRECTED PRN PRN Reason: delivery Witch Hortencia (Witch Hortencia Medicated Pads 40/Jar) 1 pad TOP ASDIRECTED PRN PRN Reason: comfort care Last Admin: 03/17/21 00:53 Dose: 1 tub Documented by: Discontinued Medications Ropivacaine (Naropin 0.2%) Confirm Administered Dose 200 mls @ as directed .ROUTE .[employer] ONE Stop: 03/16/21 19:50 Last Admin: 03/16/21 21:12 Dose: Not Given Documented by: Ondansetron HCl (Ondansetron 4 Mg/2 Ml Sdv) Confirm Administered Dose 4 mg .ROUTE .[employer] ONE Stop: 03/16/21 21:06 Last Admin: 03/16/21 21:13 Dose: Not Given Documented by: - Interaction Support Person: - Recovery Exam Fundal Tone: Firm Fundal Level: At Umbilicus Fundal Placement: Midline Lochia Amount: Scant, Small Lochia Color: Rubra/Red Perineum Description: Intact, Minimal Bruising/Swelling Episiotomy/Laceration: Approximated Bladder Status: Voiding Urinary Elimination: Voided - Exam General: Alert, Oriented Lungs: Normal Respiratory Effort Cardiovascular: Regular Rate, Regular Rhythm GI/Abdominal Exam: Normal Bowel Sounds, Soft Extremities: Pedal Edema (trace). No: Jefry's Sign Skin: Warm, Dry, Intact Neurological: No New Focal Deficit Psy/Mental Status: Alert, Normal Affect, Normal Mood - Problem List & Annotations (1) Vaginal delivery SNOMED Code(s): 064798424 Code(s): O80 - ENCOUNTER FOR FULL-TERM UNCOMPLICATED DELIVERY Status: Acute Current Visit: No - Problem List Review Problem List Initiated/Reviewed/Updated: Yes - Assessment Assessment:: PPD 1 at 39w1d - Plan Plan:: Routine cares * Rh positive, rubella immune, GBS negative * Hx of anemia- s/p IV iron transfusions. Hgb 11.1 prior to delivery * PO pain medication ordered PRN * Regular diet as tolerated * Encourage ambulation and fluid intake when able * Desires to breastfeed, nursing assistance PRN Dispo: stable. Continue PP cares
[2021-03-18] MEDS: Ibuprofen 800 MG Tab PO PRN (05:19)
--- NOTE | 2021-03-18 08:46 | PCM.PNPP ---
- General Info Date of Service: 03/18/21 Functional Status: Reports: Pain Controlled, Tolerating Diet, Ambulating, Urinating - Review of Systems General: Denies: Fever, Weakness, Fatigue Pulmonary: Denies: Shortness of Breath Cardiovascular: Denies: Palpitations, Lightheadedness Gastrointestinal: Reports: No Symptoms Genitourinary: Reports: No Symptoms Musculoskeletal: Reports: No Symptoms Skin: Reports: No Symptoms Neurological: Reports: No Symptoms Psychiatric: Reports: No Symptoms - General Info Date of Service: 03/18/21 - Patient Data Vital Signs - Most Recent: Last Vital Signs Temp 36.3 C 03/18/21 08:00 Pulse 78 03/18/21 08:00 Resp 18 03/18/21 08:00 BP 122/59 L 03/18/21 08:00 Pulse Ox 97 03/18/21 08:00 Weight - Most Recent: 76.657 kg Med Orders - Current: Current Medications Acetaminophen (Acetaminophen 500 Mg Tab) 500 mg PO Q4H PRN PRN Reason: Pain (mild 1-3) Acetaminophen (Acetaminophen 500 Mg Tab) 1,000 mg PO Q4H PRN PRN Reason: Pain (mild 1-3) Last Admin: 03/17/21 21:40 Dose: 1,000 mg Documented by: Benzocaine/Menthol (Benzocaine/Menthol 20%-0.5% [place] 78 Gm Cannister) 78 gm TOP ASDIRECTED PRN PRN Reason: Perineal Comfort Measure Last Admin: 03/17/21 00:53 Dose: 1 canister Documented by: Bisacodyl (Bisacodyl 10 Mg Supp) 10 mg RECTAL ONETIME PRN PRN Reason: Constipation Butorphanol Tartrate (Butorphanol 1 Mg/Ml Sdv) 1 mg IVPUSH Q1H PRN PRN Reason: Pain (severe 7-10) Carboprost Tromethamine (Carboprost Tromethamine 250 Mcg/1 Ml Amp) 250 mcg IM ASDIRECTED PRN PRN Reason: Post Hemorrhage Docusate Sodium (Docusate Sodium 100 Mg Cap) 100 mg PO Q12H PRN PRN Reason: Constipation Emollient Ointment (Lanolin 100% Cream 7 Gm Tube) 0 gm TOP ASDIRECTED PRN PRN Reason: Sore Nipples Last Admin: 03/17/21 08:08 Dose: 1 tube Documented by: Ephedrine Sulfate (Ephedrine 50 Mg/Ml Sdv) 10 mg IVPUSH Q1M PRN PRN Reason: Hypotension Ephedrine Sulfate (Ephedrine 50 Mg/Ml Sdv) 10 mg IVPUSH Q5M PRN PRN Reason: Hypotension Oxytocin/Sodium Chloride (Oxytocin 30 Unit In Ns 0.9% 500 Ml Premix) 30 unit in 500 mls @ 500 mls/hr IV TITRATE [facility] Tranexamic Acid 1,000 mg/ (Sodium Chloride) 110 mls @ 660 mls/hr IV ONETIME PRN PRN Reason: Bleeding Lactated Ringer's (Ringers, Lactated) 1,000 mls @ 150 mls/hr IV ASDIRECTED [facility] Last Admin: 03/16/21 20:08 Dose: 150 mls/hr Documented by: Ibuprofen (Ibuprofen 400 Mg Tab) 400 mg PO Q4H PRN PRN Reason: Pain (mild 1-3) Ibuprofen (Ibuprofen 800 Mg Tab) 800 mg PO Q6H PRN PRN Reason: Cramping Last Admin: 03/18/21 05:19 Dose: 800 mg Documented by: Lidocaine HCl (Lidocaine 1% 50 Ml Mdv) 50 ml INJECT ONETIME PRN PRN Reason: Laceration repair Methylergonovine Maleate (Methylergonovine 0.2 Mg/1 Ml Amp) 0.2 mg IM ASD IRECTED PRN PRN Reason: Post Hemorrhage Miscellaneous Medication (Phenylephrine Hcl In 0.9% Nacl 1 Mg/10 Ml Syringe) 0.1 mg IVPUSH Q1M PRN PRN Reason: Hypotension Misoprostol (Misoprostol 200 Mcg Tab) 200 mcg PO ONETIME PRN PRN Reason: Post Hemorrhage Nalbuphine HCl (Nalbuphine 10 Mg/1 Ml Vial) 10 mg IVPUSH Q1H PRN PRN Reason: Pain (severe 7-10) Ondansetron HCl (Ondansetron 4 Mg/2 Ml Sdv) 4 mg IVPUSH Q6H PRN PRN Reason: Nausea/Vomiting Last Admin: 03/16/21 21:10 Dose: 4 mg Documented by: Oxycodone HCl (Oxycodone 5 Mg Tab) 5 mg PO Q2H PRN PRN Reason: Pain (severe 7-10) Ropivacaine (Ropivacaine/Pf 400 Mg/200 Ml [employer]) 400 mg EPIDUR ASDIRECTED [facility] Sodium Chloride (Sodium Chloride 0.9% 10 Ml Syringe) 10 ml FLUSH ASDIRECTED PRN PRN Reason: Keep Vein Open Sodium Chloride (Sodium Chloride 0.9% 2.5 Ml Syringe) 2.5 ml FLUSH ASDIRECTED PRN PRN Reason: Keep Vein Open Sodium Chloride (Sodium Chloride 0.9% 20 Ml Sdv) 10 ml IV ASDIRECTED PRN PRN Reason: IV Use Sterile Water (Water For Irrigation,Sterile 1,000 Ml Container) 1,000 ml IRR ASDIRECTED PRN PRN Reason: delivery Witch Hortencia (Witch Hortencia Medicated Pads 40/Jar) 1 pad TOP ASDIRECTED PRN PRN Reason: comfort care Last Admin: 03/17/21 00:53 Dose: 1 tub Documented by: Discontinued Medications Ropivacaine (Naropin 0.2%) Confirm Administered Dose 200 mls @ as directed .ROUTE [facility] ONE Stop: 03/16/21 19:50 Last Admin: 03/16/21 21:12 Dose: Not Given Documented by: Ondansetron HCl (Ondansetron 4 Mg/2 Ml Sdv) Confirm Administered Dose 4 mg .ROUTE [facility] ONE Stop: 03/16/21 21:06 Last Admin: 03/16/21 21:13 Dose: Not Given Documented by: - Interaction Infant Disposition, : in Room with Family Support Person: - Recovery Exam Fundal Tone: Firm Fundal Level: 2 Fingerbreadths Below Umbilicus Fundal Placement: Midline Lochia Amount: Scant Lochia Color: Rubra/Red Perineum Description: Intact, Minimal Bruising/Swelling Episiotomy/Laceration: Approximated Bladder Status: Voiding Urinary Elimination: Voided - Exam General: Alert, Oriented Lungs: Normal Respiratory Effort Cardiovascular: Regular Rate, Regular Rhythm GI/Abdominal Exam: Normal Bowel Sounds, Soft Extremities: Pedal Edema (trace). No: Jefry's Sign Skin: Warm, Dry, Intact Neurological: No New Focal Deficit Psy/Mental Status: Alert, Normal Affect, Normal Mood - Problem List & Annotations (1) Vaginal delivery SNOMED Code(s): 876254149 Code(s): O80 - ENCOUNTER FOR FULL-TERM UNCOMPLICATED DELIVERY Status: Acute Current Visit: No - Problem List Review Problem List Initiated/Reviewed/Updated: Yes - My Orders Last 24 Hours: My Active Orders 03/18/21 Breakfast Regular Diet [DIET] 03/18/21 08:26 Ready for Discharge [RC] PER UNIT ROUTINE - Assessment Assessment:: PPD 2 at 39w1d - Plan Plan:: Routine cares * Rh positive, rubella immune, GBS negative * Hx of anemia- s/p IV iron transfusions. Hgb 11.1 prior to delivery * PO pain medication ordered PRN * Regular diet as tolerated * Encourage ambulation and fluid intake when able * Desires to breastfeed, nursing assistance PRN Dispo:Discharge to home today. Discharge instructions reviewed. Follow up at 4 weeks [facility]. Call with any concerns or questions.
== END 2021-03-18 10:29 | disposition home or self-care (01) | DRG 560 ==
LOC: MW.OB 18:34 → MW.OBCHECK 18:34 → MW.OB 19:11 → OBSVTOIN 21:28 → MW.OB 03-17 02:05
PROVIDERS: ADMIT Obstetrics & Gynecology; ATTEND Obstetrics & Gynecology
PROC: 10E0XZZ Delivery of Products of Conception, External Approach (ICD-10-PCS; principal; 2021-03-16)
PROC: 10907ZC Drainage of Amniotic Fluid, Therapeutic from Products of Conception, Via Natural or Artificial Opening (ICD-10-PCS; 2021-03-16)
PROC: 0KQM0ZZ Repair Perineum Muscle, Open Approach (ICD-10-PCS; 2021-03-16)
PROC: 3E0S3BZ Introduction of Anesthetic Agent into Epidural Space, Percutaneous Approach (ICD-10-PCS; 2021-03-16)
PROC: 30233N1 Transfusion of Nonautologous Red Blood Cells into Peripheral Vein, Percutaneous Approach (ICD-10-PCS; 2021-03-16)
DX: O99.02 Anemia complicating childbirth (principal); D64.9 Anemia, unspecified; Z3A.39 39 weeks gestation of pregnancy; Z37.0 Single live birth; Z88.0 Allergy status to penicillin; O70.1 Second degree perineal laceration during delivery
CPT/HCPCS: 01967; 36415; 51702; 59025; 59409; 82803; 85014; 85018; 85027; 86592; 86850; 86900; 86901; A9270-GY; J2405; J2795; J7120; U0002

== ENCOUNTER 2022-08-28 21:58 | Emergency (ER) | payer SELFPAY ==
[2022-08-28] MEDS ORDERED: Sulfamethoxazole/Trimethoprim 800-160 MG Tab PO ONE (22:18)
[2022-08-28] MEDS ORDERED: Clindamycin HCl 150 MG Cap PO ONE (22:18)
== END 2022-08-28 22:41 | disposition home or self-care (01) ==
LOC: MW.ED 21:58
DX: S01.81XA Laceration without foreign body of other part of head, initial encounter (principal); J45.909 Unspecified asthma, uncomplicated; Z88.1 Allergy status to other antibiotic agents; Z79.899 Other long term (current) drug therapy; W50.0XXA Accidental hit or strike by another person, initial encounter
CPT/HCPCS: 99282; A9270

== ENCOUNTER 2022-08-30 10:43 | Emergency (ER) | payer SELFPAY ==
[2022-08-30] MEDS ORDERED: Ondansetron 4 MG Tab.DIS PO ONE (11:31)
== END 2022-08-30 12:13 | disposition home or self-care (01) ==
LOC: MW.ED 10:43
DX: S06.0X0D Concussion without loss of consciousness, subsequent encounter (principal); J45.909 Unspecified asthma, uncomplicated; E11.9 Type 2 diabetes mellitus without complications; Z88.1 Allergy status to other antibiotic agents; Z79.899 Other long term (current) drug therapy; W50.0XXD Accidental hit or strike by another person, subsequent encounter
CPT/HCPCS: 70450; 99284; A9270

== ENCOUNTER 2022-11-15 00:46 | Emergency (ER) | payer BC ==
[2022-11-15] MEDS ORDERED: Ondansetron 4 MG/2 ML SDV IVPUSH ONE (00:53)
[2022-11-15] MEDS ORDERED: Sodium Chloride 0.9% 1,000 ML IV ONE ×2 (00:53→00:54)
[2022-11-15 01:22] LABS: BASOPHILS PERCENT AUTO 0.3 % (0.0-1.5); EOSINOPHILS ABSOLUTE AUTO 0.2 K/uL (0.0-0.7); EOSINOPHILS PERCENT AUTO 1.7 % (0.0-7.0); HEMATOCRIT 37.4 % (36.0-46.0); HEMOGLOBIN 13.1 g/dL (12.0-16.0); LYMPHOCYTES ABSOLUTE AUTO 3.5 K/uL (0.6-2.4); MEAN CORPUSCULAR HEMOGLOBIN 29.7 pg (27.0-32.0); MEAN CORPUSCULAR VOLUME 84.8 fL (80.0-98.0); MONOCYTES ABSOLUTE AUTO 0.9 K/uL (0.0-0.8); NEUTROPHILS ABSOLUTE AUTO 7.7 K/uL (1.4-5.7); PLATELET COUNT,PLT 202 K/uL (150-400); RED BLOOD CELL COUNT 4.41 M/uL (4.30-5.90)
[2022-11-15] MEDS ORDERED: Promethazine 25 MG/ML SDV IM ONE (01:57)
[2022-11-15 02:01] LABS: APPEARANCE,URINE CLOUDY; BILIRUBIN,URINE NEGATIVE (NEGATIVE); COLOR,URINE YELLOW; GLUCOSE,URINE 250 mg/dL (NEGATIVE); KETONES,URINE NEGATIVE (NEGATIVE); LEUKOCYTE ESTERASE,URINE NEGATIVE (NEGATIVE); NITRITE,URINE NEGATIVE (NEGATIVE); OCCULT BLOOD,URINE NEGATIVE (NEGATIVE); PROTEIN,URINE NEGATIVE (NEGATIVE)
[2022-11-15 02:08] LABS: A/G RATIO 0.9 (0.9-1.6); ALBUMIN 3.5 g/dL (3.4-5.0); BILIRUBIN TOTAL 0.3 mg/dL (0.2-1.0); CALCIUM 8.4 mg/dL (8.5-10.1); CARBON DIOXIDE,CO2 22.2 mmol/L (21.0-32.0); CREATININE 0.7 mg/dL (0.6-1.0); EST CRCL DRUG DOSING (CG) 96.32 mL/min; MAGNESIUM 1.9 mg/dL (1.8-2.4); POTASSIUM,K 3.9 mmol/L (3.5-5.1); PROTEIN TOTAL,TP 7.3 g/dL (6.4-8.2)
== END 2022-11-15 03:02 | disposition home or self-care (01) ==
LOC: MW.ED 00:46
DX: O21.9 Vomiting of pregnancy, unspecified (principal); O99.511 Diseases of the respiratory system complicating pregnancy, first trimester; J45.909 Unspecified asthma, uncomplicated; Z88.0 Allergy status to penicillin; Z3A.09 9 weeks gestation of pregnancy
CPT/HCPCS: 36415; 80053; 81003; 82009; 83690; 83735; 84702; 85025; 96361; 96372; 96374; 99284; J2405; J2550; J7030

== ENCOUNTER 2023-06-19 04:56 | Inpatient (IN) | payer BC ==
[2023-06-19] MEDS ORDERED: Butorphanol 2 MG/ML SDV IVPUSH PRN (05:26)
[2023-06-19] MEDS ORDERED: Carboprost Tromethamine 250 MCG/1 mL Vial IM PRN (05:26)
[2023-06-19] MEDS ORDERED: Water For Irrigation,Sterile 1,000 ML Container IRR PRN (05:26)
[2023-06-19] MEDS ORDERED: Lidocaine 1% 50 ML MDV INJECT PRN (05:26)
[2023-06-19] MEDS ORDERED: Sodium Chloride 0.9% 20 ML SDV IV PRN (05:26)
[2023-06-19] MEDS ORDERED: Docusate Sodium 100 MG Cap PO PRN ×2 (05:26)
[2023-06-19] MEDS ORDERED: Sodium Chloride 0.9% 2.5 ML Syringe FLUSH PRN (05:26)
[2023-06-19] MEDS ORDERED: Sodium Chloride 0.9% 10 ML Syringe FLUSH PRN (05:26)
[2023-06-19] MEDS ORDERED: Methylergonovine 0.2 MG/1 ML Amp IM PRN (05:26)
[2023-06-19] MEDS ORDERED: Tranexamic Acid IN NACL,ISO-OS 1,000 MG in Premix Bag 1 BAG IV PRN (05:26)
[2023-06-19] MEDS ORDERED: Misoprostol 200 MCG Tab PO PRN (05:26)
[2023-06-19] MEDS ORDERED: diphenhydrAMINE 50 MG Cap PO PRN (05:26)
[2023-06-19] MEDS ORDERED: Ondansetron 4 MG/2 ML SDV IVPUSH PRN (05:26)
[2023-06-19] MEDS ORDERED: Oxytocin/0.9 % Sodium Chloride 30 UNIT/500 ML BAG IV SCH (05:30)
[2023-06-19] MEDS: Lactated Ringers 1,000 ML IV SCH (05:57)
[2023-06-19 06:18] LABS: HEMATOCRIT 35.7 % (37.0-47.0); HEMOGLOBIN 11.7 g/dL (12.0-16.0); MEAN CORPUSCULAR HEMOGLOBIN 26.5 pg (28.0-32.0); MEAN CORPUSCULAR HGB CONC 32.8 g/dL (32.0-36.0); PLATELET COUNT,PLT 196 K/uL (150-400); RED BLOOD CELL COUNT 4.41 M/uL (4.10-5.30); WHITE BLOOD CELL COUNT,WBC 8.91 K/uL (3.9-11.3)
[2023-06-19] MEDS: Vancomycin 1.5 GM in Sodium Chloride 0.9% 500 ML IV SCH (06:53)
[2023-06-19] MEDS: Oxytocin/0.9 % Sodium Chloride 30 UNIT/500 ML BAG IV SCH (06:57)
[2023-06-19] MEDS ORDERED: Ropivacaine HCl/PF 200 ML ONE (07:01)
[2023-06-19] MEDS ORDERED: ePHEDrine 50 MG/ML SDV IVPUSH PRN ×2 (07:28)
[2023-06-19] MEDS ORDERED: Phenylephrine HCl 0.5 MG/5 ML AMP IVPUSH PRN (07:28)
[2023-06-19] MEDS: Ropivacaine HCl/PF 400 MG in Premix Bag 1 BAG EPIDUR SCH (07:59)
[2023-06-19] MEDS: Calcium Carbonate 500 MG Tab.Chew PO ONE (08:13)
[2023-06-19] MEDS: Phenylephrine HCl 0.5 MG/5 ML AMP ONE (12:36)
[2023-06-19] MEDS: Bupivacaine 0.5% 10 ML SDV ONE (12:37)
[2023-06-19] MEDS: Omeprazole 20 MG Cap.CR PO SCH (12:37)
[2023-06-19] MEDS: Ferrous Sulfate 325 MG Tab PO SCH (12:37)
[2023-06-19] MEDS: Witch Hazel Medicated Pads 40/Jar TOP PRN (16:50)
[2023-06-19] MEDS: Benzocaine/Menthol 20%-0.5% Spray 78 GM Cannister TOP PRN (16:51)
[2023-06-19] MEDS: Lanolin 100% Cream 7 GM Tube TOP PRN (16:51)
[2023-06-19] MEDS: Ibuprofen 800 MG Tab PO PRN (16:51)
[2023-06-19] MEDS: Acetaminophen 500 MG Tab PO PRN (19:17)
[2023-06-20] MEDS: Cyclobenzaprine 10 MG Tab PO PRN (06:37)
[2023-06-20 06:46] LABS: HEMOGLOBIN 9.8 g/dL (12.0-16.0); MEAN CORPUSCULAR HGB CONC 32.7 g/dL (32.0-36.0); MEAN CORPUSCULAR VOLUME 82.6 fL (83.0-99.0); MEAN PLATELET VOLUME 10.9 fL (9.4-12.3); PLATELET COUNT,PLT 178 K/uL (150-400); RED BLOOD CELL COUNT 3.63 M/uL (4.10-5.30); WHITE BLOOD CELL COUNT,WBC 9.94 K/uL (3.9-11.3)
[2023-06-20] MEDS: Prenatal Multivitamin with Calcium/Folic Acid/Iron Tab PO SCH (09:26)
== END 2023-06-21 12:20 | disposition home or self-care (01) | DRG 560 ==
LOC: UNDOADMOB 04:56 → MW.OB 04:56 → OBSVTOIN 11:13 → MW.OB 11:13
PROVIDERS: ADMIT Obstetrics & Gynecology; ATTEND Obstetrics & Gynecology
PROC: 10E0XZZ Delivery of Products of Conception, External Approach (ICD-10-PCS; principal; 2023-06-19)
PROC: 10907ZC Drainage of Amniotic Fluid, Therapeutic from Products of Conception, Via Natural or Artificial Opening (ICD-10-PCS; 2023-06-19)
PROC: 0KQM0ZZ Repair Perineum Muscle, Open Approach (ICD-10-PCS; 2023-06-19)
PROC: 3E033VJ Introduction of Other Hormone into Peripheral Vein, Percutaneous Approach (ICD-10-PCS; 2023-06-19)
DX: O99.824 Streptococcus B carrier state complicating childbirth (principal); Z37.0 Single live birth; Z3A.39 39 weeks gestation of pregnancy; O99.013 Anemia complicating pregnancy, third trimester; D64.9 Anemia, unspecified; Z88.1 Allergy status to other antibiotic agents; O99.344 Other mental disorders complicating childbirth; F32.A Depression, unspecified; O99.52 Diseases of the respiratory system complicating childbirth; J45.909 Unspecified asthma, uncomplicated; O69.81X0 Labor and delivery complicated by cord around neck, without compression, not applicable or unspecified; O70.1 Second degree perineal laceration during delivery
CPT/HCPCS: 36415; 51702; 59025; 59409; 85027; 86592; 86850; 86900; 86901; A9270-GY; J0665; J2371; J2590; J2795; J3370; J7040; J7120